=== PATIENT | female | born 1990 | race Two or more races ===

== ENCOUNTER → 2021-10-28 13:17 | Outpatient (BNVA) | payer MEDICAID, SELFPAY | PROVIDERS: Visit Provider Advanced Practice Midwife | DX: Z34.82 Encounter for supervision of other normal pregnancy, second trimester (principal); Z3A.22 22 weeks gestation of pregnancy; Z74.8 Other problems related to care provider dependency; Z59.1 Inadequate housing | CPT/HCPCS: 99202 ==

== ENCOUNTER 2021-10-31 11:51 | Outpatient (REF) | payer MEDICAID, SELFPAY ==
[2021-10-31 14:08] LABS: Hematocrit 32.2 % (37.0-47.0); Mean Corpuscular HGB Conc 34.2 g/dl (31.0-35.0); Mean Corpuscular Hemoglobin 23.9 pg (27.0-33.0); Platelet Count 273 X10*3/uL (160-400); Red Cell Distribution Width 13.7 % (11.0-16.0); White Blood Count 10.2 X10*3/uL (4.8-10.8)
[2021-10-31 14:31] LABS: Glucose 1 Hour PP 50gm Dose 87 mg/dL (60-140)
[2021-10-31 15:12] LABS: Syphilis Screen Nonreactive (Nonreactive)
[2021-11-01 01:37] LABS: Amphetamine Screen Urine Not Detected (Not Detect); Barbiturates, Urine Not Detected (Not Detect); Benzodiazepines Screen Urine Not Detected (Not Detect); Cannabinoid Screen Urine Not Detected (Not Detect); Cocaine Screen Urine Not Detected (Not Detect); Fentanyl, urine Not Detected (Not Detect); Opiate Screen Urine Not Detected (Not Detect); Phencyclidine Screen Urine Not Detected (Not Detect)
[2021-11-03 07:46] LABS: HBsAGNum1 0.21 S/CO (0.00-0.99); HIV AB/AG Nonreactive (Nonreactive); HIV Num 1 0.06 S/CO (0.00-0.99); Hepatitis B Surface Antigen Negative (Negative); ~HepC Num1 0.12 S/CO (0.00-0.79); ~Hepatitis C Antibody Nonreactive (Nonreactive)
[2021-11-05 09:03] LABS: Hemoglobin 10.8 g/dL (11.7-15.5); MCH 23.9 pg (27.0-33.0); RBC 4.52 Million/uL (3.80-5.10)
== END 2021-10-31 11:52 | disposition home or self-care (01) ==
LOC: HO.LAB 11:51
PROVIDERS: Visit Provider Advanced Practice Midwife
DX: Z34.93 Encounter for supervision of normal pregnancy, unspecified, third trimester (principal); Z3A.30 30 weeks gestation of pregnancy
CPT/HCPCS: 80307; 83020; 85014; 85018; 85027; 85041; 86762; 86780; 86787; 86803; 86850; 86900; 87086; 87340; 87389; 99212

== ENCOUNTER 2021-11-21 12:18 | Outpatient (REF) | payer MEDICAID, SELFPAY ==
[2021-11-22 13:38] LABS: CT PCR NOT DETECTED (Not Detect.); NG PCR NOT DETECTED (Not Detect.)
[2021-11-23 14:55] LABS: BV Int Neg Control Negative (Negative); BV Int Pos Control Positive (Positive)
[2021-11-27 22:41] LABS: HPV mRNA E6/E7 rflx Not Detected (Not Detected)
== END 2021-11-21 12:19 | disposition home or self-care (01) ==
LOC: HO.LNP 12:18
PROVIDERS: PCP Nurse Practitioner Primary Care; Visit Provider Advanced Practice Midwife
DX: Z34.93 Encounter for supervision of normal pregnancy, unspecified, third trimester (principal); Z3A.33 33 weeks gestation of pregnancy
CPT/HCPCS: 81003; 87480; 87491; 87510; 87591; 87624; 87660; 88142; 99212

== ENCOUNTER 2021-12-09 12:13 | Outpatient (REF) | payer MEDICAID, SELFPAY ==
[2021-12-10 03:29] LABS: CT PCR NOT DETECTED (Not Detect.); NG PCR NOT DETECTED (Not Detect.)
[2021-12-10 12:44] LABS: BV Int Neg Control Negative (Negative); BV Int Pos Control Positive (Positive)
== END 2021-12-09 12:14 | disposition home or self-care (01) ==
LOC: HO.LNP 12:13
PROVIDERS: Visit Provider Advanced Practice Midwife
DX: Z34.93 Encounter for supervision of normal pregnancy, unspecified, third trimester (principal)
CPT/HCPCS: 87081; 87480; 87491; 87510; 87591; 87660; 99212

== ENCOUNTER 2021-12-16 09:48 | Outpatient (REF) | payer MEDICAID, SELFPAY | END 2021-12-16 09:49 | disposition home or self-care (01) | LOC: HO.LNP 09:48 | PROVIDERS: Visit Provider Advanced Practice Midwife | DX: Z34.93 Encounter for supervision of normal pregnancy, unspecified, third trimester (principal) | CPT/HCPCS: 87081; 87147; 99212 ==

== ENCOUNTER → 2021-12-30 09:58 | Outpatient (BNVA) | payer MEDICAID, SELFPAY | PROVIDERS: PCP Nurse Practitioner Primary Care; Visit Provider Advanced Practice Midwife | DX: Z34.83 Encounter for supervision of other normal pregnancy, third trimester (principal); Z3A.39 39 weeks gestation of pregnancy | CPT/HCPCS: 99212 ==

== ENCOUNTER → 2022-02-11 14:07 | Outpatient (BNVA) | payer MEDICAID, SELFPAY | PROVIDERS: PCP Nurse Practitioner Primary Care; Visit Provider Advanced Practice Midwife | DX: Z39.1 Encounter for care and examination of lactating mother (principal); Z39.2 Encounter for routine postpartum follow-up; Z30.09 Encounter for other general counseling and advice on contraception; Z59.1 Inadequate housing | CPT/HCPCS: 99212 ==

== ENCOUNTER 2023-10-18 10:23 | Emergency (ER) | payer MEDICAID, SELFPAY ==
--- NOTE | ~2023-10-18 | XR_ITS ---
EXAMINATION: XR CHEST CLINICAL INFORMATION: Chest pain COMPARISON: None available. TECHNIQUE: 2 views of the chest were obtained. FINDINGS: No significant abnormality is noted involving the heart, lungs, mediastinum, bony thorax or soft tissues. XR/XR chest 2V IMPRESSION: Unremarkable examination.
--- NOTE | 2023-10-18 10:25 | ECG_ITS ---
Test Reason : CHEST PAIN Blood Pressure : / mmHG Vent. Rate : 079 BPM Atrial Rate : 079 BPM P-R Int : 164 ms QRS Dur : 076 ms QT Int : 366 ms P-R-T Axes : 032 043 047 degrees QTc Int : 419 ms Normal sinus rhythm Normal ECG No previous ECGs available Referred By: Generic ED Physician Electronically Signed By:YADI COX
[2023-10-18 10:33] VITALS: BP 125/73; PULSE 78; RESP 16; TEMP 37; O2SAT 98; BMI 37.2
[2023-10-18 10:47] LABS: MANUAL DIFF FLAG NO
[2023-10-18 10:50] LABS: Basophils Percent Auto 0.3 % (0-2); Eosinophils Absolute Auto 0.1 X10*3/uL (0.0-0.4); Hematocrit 35.1 % (37.0-47.0); Hemoglobin 11.9 g/dl (12.0-16.0); Imm Gran Abs Auto 0.03 X10*3/uL (0.00-0.03); Imm Gran Pct Auto 0.3 % (0.0-0.4); Lymphocytes Absolute Auto 2.9 X10*3/uL (1.2-4.9); Lymphocytes Percent Auto 33.6 % (20-40); Mean Corpuscular HGB Conc 33.9 g/dl (31.0-35.0); Mean Corpuscular Hemoglobin 22.5 pg (27.0-33.0); Mean Corpuscular Volume 66.4 fL (80.0-98.0); Mean Platelet Volume 9.1 fL (9.4-12.3); Monocytes Absolute Auto 0.5 X10*3/uL (0.1-1.2); Monocytes Percent Auto 5.3 % (2-11); Neutrophils Absolute Auto 5.1 x10*3/uL (2.0-8.3); Neutrophils Percent Auto 59.5 % (45-73); Platelet Count 339 X10*3/uL (160-400); Red Blood Count 5.29 X10*6/uL (4.20-5.50); Red Cell Distribution Width 15.2 % (11.0-16.0); White Blood Count 8.6 X10*3/uL (4.8-10.8)
[2023-10-18 11:09] LABS: Anion Gap 12 (12-20); Blood Urea Nitrogen 13 mg/dL (9-16); Calcium 9.5 mg/dL (8.4-10.2); Carbon Dioxide 26 mmol/L (22-29); Chloride 105 mmol/L (96-108); Estimated Glomerular Filt Rate > 60; Glucose Random 104 mg/dL (60-115); Potassium 3.5 mmol/L (3.3-5.1); Sodium 139 mmol/L (135-145)
[2023-10-18 11:18] LABS: Troponin-I High Sensitivity < 2.7 ng/L (<3.5-17.0)
== END 2023-10-18 14:01 | disposition left against medical advice (07) ==
PROVIDERS: Emergency Provider Emergency Medicine; PCP Nurse Practitioner Primary Care
DX: R07.9 Chest pain, unspecified (principal); Z53.21 Procedure and treatment not carried out due to patient leaving prior to being seen by health care provider
CPT/HCPCS: 36415; 71046; 80048; 84484; 85025; 93005; 99281; 99282; 99283

== ENCOUNTER 2023-10-18 15:11 | Emergency (ER) | payer MEDICAID, SELFPAY ==
[2023-10-18 15:32] VITALS: BP 149/84; PULSE 81; RESP 18; TEMP 37; O2SAT 100; BMI 33.1
--- NOTE | 2023-10-18 15:34 | ED_ITS ---
HPI - Chest Pain General Chief Complaint: Chest Pain Stated Complaint: Call To Return Time Seen by Provider: 10/18/23 15:40 Source: patient, old records reviewed and vp of product Mode of arrival: ambulatory Limitations: no limitations History of Present Illness ED Provider: Marizol Chapin PA-C HPI narrative: 33 yo Mexican Creole speaking female presents to the ER for evaluation of intermittent left sided chest pains for the last 3 months. She was seen here in the ER earlier today for similar complaints, ended up leaving and then coming back after she got home. She states she left a letter here from her primary care doctor. She is wanting a cardiology referral for her intermittent pains on the left side. She states she gets some intermittently, described as a cramping pain usually on the left side of her chest. She states an example is when she was reaching for something she gets a cramping pain in her chest that causes her to stay still for 30 seconds or more. It self resolved. No associated shortness of breath, nausea, diaphoresis or any other symptoms. She denies any leg swelling. She is not on an oral contraceptive. MD complaint: chest pain Onset (ago): month(s) Timing of current episode: episodic Prior episodes: Yes Pain location: left chest Pain radiation: none Severity: moderate Quality: sharp Relieving factors: nothing Exacerbating factors: nothing Treatment prior to arrival: none Risk Factors Coronary artery disease risk factors: none Thoracic aortic dissection risk factors: none Related Data On Oral Contraceptives: No Previous Rx's ?Medication ?Instructions ?Recorded vitamin with calcium 1 tab PO DAILY #90 tabs 10/28/21 no.72-iron 27 mg-folic acid 1 mg tablet ( Vitamins Plus Low Iron) ferrous sulfate 325 mg (65 mg 325 mg PO DAILY #60 tabs 11/19/21 iron) tablet (Iron (ferrous sulfate)) Allergies Allergy/AdvReac Type Severity Reaction Status Date / Time No Known Allergies Allergy Verified 10/18/23 15:41 Review of Systems Review of Systems: Yes all other systems are reviewed and are negative [facility] Family History Family History Maternal Uncle Sickle cell disease Social History Social History Household Members: Spouse and Children Housing: Homeless Housing Other:: lives in longterm Are you a primary inspector health care facilities to a significant other at home: No Do you presently have visiting nurse or other home services: No Alcohol intake: never Patient Tobacco Use Status: Never used Tobacco Agree to transfusion: Yes Advance Directives: No Advance Directives Information Provided: No service: No Current occupational status: unemployed Cognitive needs: No Hearing needs: No Vision needs: No Physical Exam Vital Signs: Vital Signs: Last Vital Signs Temp 98.6 F 10/18/23 15:32 Pulse 81 10/18/23 15:32 Resp 18 10/18/23 15:32 BP 149/84 H 10/18/23 15:32 Pulse Ox 100 10/18/23 15:32 O2 Del Method Room Air 10/18/23 15:32 BMI result Body Mass Index 33.1 Appearance: Alert. Oriented X3. No acute distress. Head: normocephalic, atraumatic. Eyes: Pupils equal, round and reactive to light. ENT: Pharynx normal. No tonsillar swelling or exudate. Neck: Normal inspection. Neck supple. CVS: Normal heart rate and rhythm. Pulses normal. nontender chest wall Respiratory: No respiratory distress. Breath sounds normal. Abdomen: Soft and nontender. +BS x4 Skin: Skin warm and dry. Normal skin color. Normal skin turgor. No rashes. Extremities: No lower extremity edema. No joint swelling. Neuro/psych: Oriented X 3. grossly normal, nonfocal Medical Decision Making Medical Decision Making MDM Narrative: 33-year-old female presents to the ER for evaluation of intermittent left-sided chest pains for the last 3 months. None at present. Patient describes the pain as a cramping type pain in the left chest that resolves on its own. No other associated symptoms. She is not on a oral contraceptive Her vital signs are stable. Perc negative. Workup earlier today shows a nonischemic, normal EKG. Chest x-ray is clear. Labs are unremarkable including a negative troponin. Doubt cardiac etiology. At this time she is stable for discharge home. She would like a referral to Cardiology. Name and number provided for nonurgent outpatient evaluation. She will follow up with her PCP. She is stable for discharge home Differential Diagnosis Differential Diagnoses: The differential diagnosis associated with the presentation includes Costochondritis, anxiety, muscular pain, low clinical suspicion for cardiac etiology such as ACS or PE Admission/Observation Consideration of admission/observation: Escalation of care including admission/observation considered Lab Data MDM Lab Attestation statement: I reviewed the patient's lab results. mild microcytic anemia Independent Interpretation I performed an independent interpretation of an: EKG and Plain X-Ray Interpretation: cxr clear without focal infiltrate or effusion ekg wiht normal sinus rhythm, HR 79 bpm, no ST segment elevations or depressions, normal QTc Radiology Impression Discussion of test interpretation with radiology: I have reviewed the radiologist's reading. Radiologist Impression: EXAMINATION: XR CHEST CLINICAL INFORMATION: Chest pain COMPARISON: None available. TECHNIQUE: 2 views of the chest were obtained. FINDINGS: No significant abnormality is noted involving the heart, lungs, mediastinum, bony thorax or soft tissues. XR/XR chest 2V IMPRESSION: Unremarkable examination. External Record Review External record reviewed: Prior outpatient labs Prescription Management I considered prescription management with: Pain Medication Social Determinants Patient?s care significantly limited by Social Determinants of Health including: Other Social Determinant of Health (language barrier) Critical Care Time Critical Care Time Critical Care Time: No Discharge Plan Discharge Clinical Impression: Chest pain, atypical Patient Disposition: Home, Self-Care Instructions: Noncardiac Chest Pain (ED) Additional Instructions: your lab workup, EKG, and chest x-ray were normal recommend following up with cardiology for further evaluation. name and number below follow up with your primary care doctor If you develop new or worsening symptoms call 911 or come back to the ER for further evaluation. Prescriptions: No Action ferrous sulfate [Iron (ferrous sulfate)] 325 mg (65 mg iron) Tablet 325 mg PO DAILY Qty: 60 0RF Vitamin Plus Low Iron 27 mg iron- 1 mg tablet 1 tab PO DAILY Qty: 90 4RF Referrals: [facility] [place] [facility] [Provider Group] Amparo Todd [facility] [Primary Care Provider] - Print Language: [place] Islander
[2023-10-18 16:02] VITALS: BP 149/84; PULSE 81; RESP 18; TEMP 37; O2SAT 100
== END 2023-10-18 16:03 | disposition home or self-care (01) ==
PROVIDERS: Emergency Provider Emergency Medicine; PCP Nurse Practitioner Primary Care
DX: R07.89 Other chest pain (principal)
CPT/HCPCS: 99282

== ENCOUNTER 2024-03-31 12:24 | Emergency (ER) | payer MEDICAID, SELFPAY ==
--- NOTE | ~2024-03-31 | US_ITS ---
EXAMINATION: US OBSTETRICAL ULTRASOUND CLINICAL INFORMATION: 6 weeks with vaginal bleed. COMPARISON: None available. LMP: 02/15/2024. Gestational age by maternal dates is 6 weeks and 3 days. Estimated date of delivery by maternal dates is 11/21/2024. TECHNIQUE: Seen transabdominal and transvaginal imaging of pelvis is performed. FINDINGS: The uterus is anteverted and measures 10.5 x 4.8 x 5.9 cm. Endometrial stripe measures 1.5 cm. There is hypoechoic area along the posterior endometrium question focal hemorrhage versus fluid collection. MATERNAL ADNEXA: The right maternal ovary measures 2.0 x 1.1 x 2.0 cm. No focal lesion is seen. The left maternal ovary measures 1.9 x 2.6 x 2.1 cm. There is anechoic cyst likely corpus luteal cyst measuring 1.2 x 1.5 x 1.6 cm. There is no adnexal mass or free fluid. US/US OB pelvic and transvaginal IMPRESSION: No intrauterine gestational sac or adnexal mass seen. Hypoechoic area in the posterior endometrium likely fluid or hemorrhage. Electronically signed by: Hung Morgan MD 03/31/2024 03:46 PM EST
[2024-03-31 12:51] VITALS: BP 125/70; PULSE 89; RESP 18; TEMP 36.8; O2SAT 100; BMI 37.3
--- NOTE | 2024-03-31 13:03 | ED.GENADULT ---
HPI - General Adult General Chief complaint: Vaginal Bleeding Stated complaint: Vaginal bleeding Time Seen by Provider: 03/31/24 16:30 History of Present Illness ED Provider: Jermaine ARMIJO narrative: The patient is a 33-year-old woman who was with her 4th . She has 3 children. Her last menstrual period was February 14. Five days ago on Wednesday she started to experience vaginal bleeding associated with some pelvic discomfort. She has had ongoing bleeding since then and finally came to the emergency room today. The patient was aware that she was . She has contacted the [facility] office and has a 1st appointment in April. The patient reports that she is going through about 5 pads per day. Related Data Previous Rx's ?Medication ?Instructions ?Recorded vitamin with calcium 1 tab PO DAILY #90 tabs 10/28/21 no.72-iron 27 mg-folic acid 1 mg tablet ( Vitamins Plus Low Iron) ferrous sulfate 325 mg (65 mg 325 mg PO DAILY #60 tabs 11/19/21 iron) tablet (Iron (ferrous sulfate)) Allergies Allergy/AdvReac Type Severity Reaction Status Date / Time No Known Allergies Allergy Verified 03/31/24 12:52 Review of Systems Review of Systems: Yes all other systems are reviewed and are negative [facility] Family History Family History Maternal Uncle Sickle cell disease Social History Social History Household Members: Spouse and Children Housing: Homeless Housing Other:: lives in penitentiary Are you a primary career education teacher to a significant other at home: No Do you presently have visiting nurse or other home services: No Alcohol intake: never Patient Tobacco Use Status: Never used Tobacco Agree to transfusion: Yes Advance Directives: No Advance Directives Information Provided: No Do you have a plan to hurt others: No Plan service: No Current occupational status: unemployed Cognitive needs: No Hearing needs: No Vision needs: No Physical Exam ED Vital Signs: Vital Signs - 24 hr 03/31/24 12:51 03/31/24 16:41 03/31/24 18:28 Temperature 98.3 F 97.8 F Pulse Rate 89 79 82 Respiratory Rate 18 14 16 Blood Pressure 125/70 119/78 122/89 Pulse Oximetry 100 100 100 Oxygen Delivery Method Room Air Room Air Room Air BMI result Body Mass Index 37.3 Const Other: The patient is awake, alert, pleasant, cooperative. She does not appear in any distress. HENMT Other: Face is symmetrical. Mucous membranes moist. Eyes General: appearance normal, both eyes and all related structures Neck Neck: Yes full ROM Resp Effort & Inspection: normal respiratory effort Auscultation: clear to auscultation bilaterally Cardio Rate: regular rate Rhythm: regular rhythm Heart sounds: S1 normal heart sound present and S2 normal heart sound present GI Other: Abdomen is soft and nontender Other: There was no significant amount of blood at the introitus. Introduction of the speculum revealed what seemed to be a small amount of possible tissue in the vaginal vault associated with a small amount of blood. I was able to remove the tissue with a colpette. There was no significant ongoing bleeding. Skin Other: Skin is dry and unremarkable Neuro Other: The patient is awake and alert with a normal mental status. Demeanor is nontoxic. Cranial nerves are grossly intact. She moves all extremities normally. Gait is normal. She seems entirely neurologically intact Extrem Other: No peripheral edema Course Course Course Narrative: Patient is 6 weeks , Creole speaking, complains of bleeding off and on for several days, had some mild pain on 1st day, no significant pain today, does not feel dizzy or weak Ultrasound, labs ordered This is rapid medical exam done in triage pending full evaluation for exam evaluation and dispo from ER provider Medical Decision Making Medical Decision Making MDM Narrative: The patient presents with symptoms suggestive of a possible spontaneous in a patient who was about 6 weeks by dates. The patient looks entirely well in his hemodynamically stable. Rh is positive. Beta HCG is 426. An ultrasound shows no intrauterine gestational sac or adnexal mass. There is a hypoechoic area in the posterior endometrium likely fluid or hemorrhage. Case was discussed with Dr. aDniels. He recommends the patient returned to the emergency room tomorrow on Wednesday for a repeat beta HCG and follow up in the office on Wednesday. Lab Data 03/31/24 13:41 03/31/24 13:41 Labs: Lab Results 03/31/24 03/31/24 Range/Units 13:40 13:41 WBC 9.4 (4.8-10.8) X10*3/uL RBC 5.03 (4.20-5.50) X10*6/uL Hgb 11.4 L (12.0-16.0) g/dl Hct 33.0 L (37.0-47.0) % MCV 65.6 L (80.0-98.0) fL MCH 22.7 L (27.0-33.0) pg MCHC 34.5 (31.0-35.0) g/dl RDW 14.6 (11.0-16.0) % Plt Count 312 (160-400) X10*3/uL MPV 9.0 L (9.4-12.3) fL Immature Gran % (Auto) 0.3 (0.0-0.4) % Neut % (Auto) 69.3 (45-73) % Lymph % (Auto) 23.2 (20-40) % [place] % (Auto) 6.3 (2-11) % Eos % (Auto) 0.6 (0-4) % Baso % (Auto) 0.3 (0-2) % Lymph # (Auto) 2.2 (1.2-4.9) X10*3/uL [place] # (Auto) 0.6 (0.1-1.2) X10*3/uL Eos # (Auto) 0.1 (0.0-0.4) X10*3/uL Baso # (Auto) 0.0 (0.0-0.2) X10*3/uL Abs Immat Gran (auto) 0.03 (0.00-0.03) X10*3/uL Absolute Neuts (auto) 6.5 (2.0-8.3) x10*3/uL Absolute Nucleated RBC 0.000 (0.0-0.012) X10*3/uL Nucleated RBC % (auto) 0.0 (0.0-0.2) /100WBC Sodium 139 (135-145) mmol/L Potassium 3.4 (3.3-5.1) mmol/L Chloride 107 (96-108) mmol/L Carbon Dioxide 25 (22-29) mmol/L Anion Gap 10 L (12-20) BUN 9 (9-16) mg/dL Creatinine 0.80 (0.5-1.4) mg/dL Estim Creat Clear Calc 119.3 Estimated GFR > 60 Random Glucose 83 (60-115) mg/dL Calcium 8.8 D (8.4-10.2) mg/dL Beta HCG, Quant 426 mIU/mL Urine Color Yellow Urine Appearance Clear Urine pH 5.5 (5.0-9.0) Ur Specific [place] 1.025 (1.005-1.025) Urine Protein Trace (Neg-Trace) mg/dL Urine Glucose (UA) Negative (Negative) mg/dL Urine Ketones Trace (Negative) mg/dL Urine Blood Large (3+) H (Negative) Urine Nitrite Negative (Negative) Ur Leukocyte Esterase Small (1+) H (Negative) Urine RBC >20 H (0-2) /HPF Urine WBC 11-20 H (0-5) /HPF Ur Squamous Epith Cells 0-2 (0-2) /HPF Urine Bacteria None Seen (None Seen) Hyaline Casts 0-2 (0-2) /LPF Urine Test POSITIVE H (NEGATIVE) Blood Type A Positive Discharge Plan Discharge Clinical Impression: Threatened miscarriage in early Patient Disposition: Home, Self-Care Instructions: Threatened Miscarriage (ED) Additional Instructions: It is possible you are experiencing a miscarriage today. I have contacted Dr. Daniels, the baker pastry. He has a requested that you return to the emergency room tomorrow for a repeat beta HCG blood test. He has also requested that you get seen at his office on Wednesday. Therefore please return when convenient tomorrow for a repeat blood test and plan on being seen at Dr. Daniels's office on Wednesday as well. If at any point you feel significantly worse, especially if heavy bleeding, worsening pain, or fever, please return directly to the emergency room. Prescriptions: No Action ferrous sulfate [Iron (ferrous sulfate)] 325 mg (65 mg iron) Tablet 325 mg PO DAILY Qty: 60 0RF Vitamin Plus Low Iron 27 mg iron- 1 mg tablet 1 tab PO DAILY Qty: 90 4RF Referrals: [facility] [place] [facility] [Provider Group] (Threatened spontaneous miscarriage) Interventions: ED Discharge Assessment Last Done: 03/31/24 18:28 Discharge Date/Time: 03/31/24 18:29 Print Language: Chinese
[2024-03-31 13:45] LABS: MANUAL DIFF FLAG NO
[2024-03-31 13:51] LABS: Appearance Urine Clear; Color Urine Yellow; Glucose Urine UA Negative (Negative); Leukocyte Esterase Urine Small (1+) (Negative); Nitrite Urine Negative (Negative); PH 5.5 (5.0-9.0); Specific Gravity - Urine 1.025 (1.005-1.025); UMIC TRIGGER UACC YES; Urine Blood Large (3+) (Negative); Urine Ketones Trace mg/dL (Negative); Urine Protein Trace mg/dL (Neg-Trace)
[2024-03-31 13:53] LABS: Basophils Percent Auto 0.3 % (0-2); Eosinophils Absolute Auto 0.1 X10*3/uL (0.0-0.4); Eosinophils Percent Auto 0.6 % (0-4); Hemoglobin 11.4 g/dl (12.0-16.0); Imm Gran Abs Auto 0.03 X10*3/uL (0.00-0.03); Imm Gran Pct Auto 0.3 % (0.0-0.4); Lymphocytes Absolute Auto 2.2 X10*3/uL (1.2-4.9); Lymphocytes Percent Auto 23.2 % (20-40); Mean Corpuscular HGB Conc 34.5 g/dl (31.0-35.0); Mean Corpuscular Hemoglobin 22.7 pg (27.0-33.0); Mean Corpuscular Volume 65.6 fL (80.0-98.0); Monocytes Absolute Auto 0.6 X10*3/uL (0.1-1.2); Monocytes Percent Auto 6.3 % (2-11); Neutrophils Absolute Auto 6.5 x10*3/uL (2.0-8.3); Neutrophils Percent Auto 69.3 % (45-73); Platelet Count 312 X10*3/uL (160-400); Red Blood Count 5.03 X10*6/uL (4.20-5.50); Red Cell Distribution Width 14.6 % (11.0-16.0); White Blood Count 9.4 X10*3/uL (4.8-10.8)
[2024-03-31 13:55] LABS: Bacteria Urine None Seen (None Seen); Hyaline Casts Urine 0-2 /LPF (0-2); RBC Urine >20 /HPF (0-2); Squamous Epithelial Cell Urine 0-2 /HPF (0-2); UACC Culture Trigger YES
[2024-03-31 13:57] LABS: UPreg QC Valid YES; Urine Pregnancy POSITIVE (NEGATIVE)
[2024-03-31 14:07] LABS: Anion Gap 10 (12-20); Blood Urea Nitrogen 9 mg/dL (9-16); Calcium 8.8 mg/dL (8.4-10.2); Carbon Dioxide 25 mmol/L (22-29); Chloride 107 mmol/L (96-108); Creatinine Clr Calc Pharmacy 119.3; Estimated Glomerular Filt Rate > 60; Glucose Random 83 mg/dL (60-115); Potassium 3.4 mmol/L (3.3-5.1); Sodium 139 mmol/L (135-145)
[2024-03-31 14:09] LABS: HCG Quantitative 426 mIU/mL
[2024-03-31 16:41] VITALS: BP 119/78; PULSE 79; RESP 14; O2SAT 100
--- NOTE | 2024-03-31 17:38 | PC.NURSE ---
provider at bedside for pelvic exam
--- NOTE | 2024-03-31 18:21 | P.CONOB_ITS ---
INVENTORY MANAGER - CN: HPI Data of Consult Consult date: 03/31/24 Primary Care Provider: Consuelo Mart Consult Narrative Narrative: I was consulted on Evaristo Augustine who is a 33 year old female presenting to the emergency room LMP on February 14 making her by dates at 6 weeks and 3 days of gestation. The patient started to experience vaginal bleeding associated with some pelvic discomfort 5 days ago. She has had ongoing bleeding since then and finally came to the emergency room today. No other associated symptoms. HCG 426, blood type A positive cc:: CC: OB [facility] Family History Family History Maternal Uncle Sickle cell disease Social History Social History Household Members: Spouse and Children Housing: Homeless Housing Other:: lives in fdc Are you a primary home care music therapist to a significant other at home: No Do you presently have visiting nurse or other home services: No Alcohol intake: never Patient Tobacco Use Status: Never used Tobacco Agree to transfusion: Yes Advance Directives: No Advance Directives Information Provided: No Do you have a plan to hurt others: No Plan service: No Current occupational status: unemployed Cognitive needs: No Hearing needs: No Vision needs: No Meds Allergies Allergy/AdvReac Type Severity Reaction Status Date / Time No Known Allergies Allergy Verified 03/31/24 12:52 INVENTORY MANAGER Physical Exam Vitals Vital signs: Temp Pulse Resp BP Pulse Ox O2 Del Method 98.3 F 79 14 119/78 100 Room Air 03/31/24 12:51 03/31/24 16:41 03/31/24 16:41 03/31/24 16:41 03/31/24 16:41 03/31/24 16:41 BMI result Body Mass Index 37.3 Additional Comments: Reported by Manolo Dean in the emergency room as the following week: Tissues removed from the cervix minimal blood per vagina no cervical motion tenderness uterine or adnexal tenderness abdomen with a normal INVENTORY MANAGER - Results Labs 03/31/24 13:41 03/31/24 13:41 Labs: Short CBC 03/31/24 Range/Units 13:41 WBC 9.4 (4.8-10.8) X10*3/uL Hgb 11.4 L (12.0-16.0) g/dl Hct 33.0 L (37.0-47.0) % Plt Count 312 (160-400) X10*3/uL BMP 03/31/24 13:41 Sodium 139 Potassium 3.4 Chloride 107 Carbon Dioxide 25 BUN 9 Creatinine 0.80 Calcium 8.8 D Urine 03/31/24 Range/Units 13:41 Urine Color Yellow Urine Appearance Clear Urine pH 5.5 (5.0-9.0) Ur Specific [place] 1.025 (1.005-1.025) Urine Protein Trace (Neg-Trace) mg/dL Urine Glucose (UA) Negative (Negative) mg/dL Urine Test POSITIVE H (NEGATIVE) Imaging US - abdomen: Radiologist's impression: ITS Impressions Pelvic/Transvag US 03/31/24 14:52 IMPRESSION: No intrauterine gestational sac or adnexal mass seen. Hypoechoic area in the posterior endometrium likely fluid or hemorrhage. Electronically signed by: Hung Morgan MD 03/31/2024 03:46 PM [facility] Assessment and Plan (1) Threatened miscarriage in early : Status: Acute Discussed with Manolo Park in the emergency room the following: Differential diagnosis include SAB, early IUP, incomplete , complete or ectopic Recommended to have the patient come back to emergency room for a repeat hCG quantitative and repeat evaluation Incomplete /ectopic instructions to be given to the patient, she is to come back to emergency room in case of pelvic pain, persistence or heavy vaginal bleeding. Otherwise follow-up in the office on Wednesday I spent a total of 20 minutes reviewing the chart, discussing the case with the emergency room provider and documenting in the medical record.
[2024-03-31 18:28] VITALS: BP 122/89; PULSE 82; RESP 16; TEMP 36.6; O2SAT 100
== END 2024-03-31 18:29 | disposition home or self-care (01) ==
PROVIDERS: Physician Assistant Medical; Emergency Provider Emergency Medicine
DX: O20.0 Threatened abortion (principal); Z3A.01 Less than 8 weeks gestation of pregnancy; R10.2 Pelvic and perineal pain; Z79.899 Other long term (current) drug therapy
CPT/HCPCS: 36415; 76801; 76817; 80048; 81001; 81025; 84702; 85025; 86900; 86901; 87086; 99284

== ENCOUNTER → 2024-03-31 16:26 | Outpatient (BNV) | payer MEDICAID, SELFPAY | PROVIDERS: Emergency Provider Emergency Medicine; Visit Provider Obstetrics & Gynecology | DX: O20.0 Threatened abortion (principal) | CPT/HCPCS: 99283 ==

== ENCOUNTER 2024-04-01 07:15 | Emergency (ER) | payer MEDICAID, SELFPAY ==
[2024-04-01 07:18] VITALS: BP 124/64; PULSE 82; RESP 18; TEMP 36.8; O2SAT 97; BMI 37.1
[2024-04-01 07:31] LABS: MANUAL DIFF FLAG NO
[2024-04-01 07:35] LABS: Basophils Percent Auto 0.3 % (0-2); Eosinophils Absolute Auto 0.1 X10*3/uL (0.0-0.4); Eosinophils Percent Auto 1.1 % (0-4); Hematocrit 33.4 % (37.0-47.0); Hemoglobin 11.4 g/dl (12.0-16.0); Imm Gran Abs Auto 0.02 X10*3/uL (0.00-0.03); Imm Gran Pct Auto 0.2 % (0.0-0.4); Lymphocytes Absolute Auto 2.5 X10*3/uL (1.2-4.9); Lymphocytes Percent Auto 28.8 % (20-40); Mean Corpuscular HGB Conc 34.1 g/dl (31.0-35.0); Mean Corpuscular Hemoglobin 22.4 pg (27.0-33.0); Mean Corpuscular Volume 65.5 fL (80.0-98.0); Mean Platelet Volume 8.9 fL (9.4-12.3); Monocytes Absolute Auto 0.4 X10*3/uL (0.1-1.2); Monocytes Percent Auto 4.5 % (2-11); Neutrophils Absolute Auto 5.7 x10*3/uL (2.0-8.3); Neutrophils Percent Auto 65.1 % (45-73); Platelet Count 314 X10*3/uL (160-400); Red Cell Distribution Width 14.6 % (11.0-16.0); White Blood Count 8.7 X10*3/uL (4.8-10.8)
--- NOTE | 2024-04-01 07:49 | ED.FEMALEGU ---
HPI - Female Genitourinary General Chief complaint: Vaginal Bleeding Stated complaint: repeat beta HCG blood test Time Seen by Provider: 04/01/24 07:25 Source: patient and horticultural nursery assistant Mode of arrival: ambulatory Limitations: no limitations History of Present Illness ED Provider: DR. Brown HPI Narrative: 33-year-old female in her early , LMP was 02/14. Was seen yesterday for vaginal spotting and bleed with no abdominal, mild pelvic discomfort, had her HCG 426, blood type was A positive, pelvic ultrasound yesterday showed no IUP, patient was advised to return for repeat hCG Related Data Previous Rx's ?Medication ?Instructions ?Recorded vitamin with calcium 1 tab PO DAILY #90 tabs 10/28/21 no.72-iron 27 mg-folic acid 1 mg tablet ( Vitamins Plus Low Iron) ferrous sulfate 325 mg (65 mg 325 mg PO DAILY #60 tabs 11/19/21 iron) tablet (Iron (ferrous sulfate)) Allergies Allergy/AdvReac Type Severity Reaction Status Date / Time No Known Allergies Allergy Verified 04/01/24 07:21 Review of Systems Review of Systems: All other systems are reviewed and are negative Constitutional: Reports as per HPI and Reports no additional constitutional complaints Eyes: Reports as per HPI and Reports no additional eye complaints Reports system reviewed and no additional complaints, except as documented Cardiovascular: Reports as per HPI and Reports no additional cardiovascular complaints Respiratory: Reports as per HPI and Reports no additional respiratory complaints Gastrointestinal: Reports as per HPI and Reports no additional gastrointestinal complaints Genitourinary: Reports no additional female genitourinary complaints Musculoskeletal: Reports no additional musculoskeletal complaints Skin/Breast: Reports system reviewed and no additional complaints, except as docu Psychiatric: Reports no additional psychiatric complaints Endocrine: Reports no additional endocrine complaints Hematologic/Lymphatic: Reports no additional hematologic/lymphatic complaints Allergic/Immunologic: Reports no additional allergic/immunologic complaints Reports system reviewed and no additional complaints, except as documented and Reports Abnormal speech present ON LICENSE OF [facility] Family History Family History Maternal Uncle Sickle cell disease Social History Social History Household Members: Spouse and Children Housing: Homeless Housing Other:: lives in [facility] Are you a primary personal care aide to a significant other at home: No Do you presently have visiting nurse or other home services: No Alcohol intake: never Patient Tobacco Use Status: Never used Tobacco Agree to transfusion: Yes Advance Directives: No Advance Directives Information Provided: No service: No Current occupational status: unemployed Cognitive needs: No Hearing needs: No Vision needs: No Physical Exam Vital Signs: Vital Signs: Last Vital Signs Temp 98.2 F 04/01/24 07:18 Pulse 82 04/01/24 07:18 Resp 18 04/01/24 07:18 BP 124/64 04/01/24 07:18 Pulse Ox 97 04/01/24 07:18 O2 Del Method Room Air 04/01/24 07:18 BMI result Body Mass Index 37.1 Vital signs have been reviewed and appear to be correct. Blood pressure elevated. Heart rate normal. Respiratory rate normal. Temperature normal. Oxygen saturation normal. Appearance: Alert. Oriented X3. No acute distress. Head: Normal external exam. Normocephalic. Atraumatic. No Keller signs noted. No raccoon eyes noted Eyes: PERRLA. EOMI. Conjunctiva and sclera normal. Eyelids normal. ENT: TM's Normal. Pharynx normal. Uvula midline. Moist mucous membranes. No trismus noted. No drooling noted. No muffled voice noted. Neck: Normal inspection. Neck supple. FROM. No adenopathy. Thyroid Normal. No meningeal signs. No neck mass noted. CVS: Normal heart rate and rhythm. Heart sound normal. No murmurs noted. Pulses normal throughout. Respiratory: No respiratory distress. Painless inspiration. Breath sounds normal. No wheezes/rales/rhonchi noted. Chest nontender. No accessory muscle usage noted or decreased air movement noted. Abdomen: Soft and nontender. Bowel sounds normal in all 4 quadrants. No distention noted. No organomegaly noted. No visible injury noted. Pelvic exam: No heavy bleeding few cc blood/dry blood in the vault, no speculum exam or bimanual exam. Back: No CVA tenderness. Full range of motion noted. Skin: Skin warm and dry. Normal skin color. Normal skin turgor. No rashes/lesions/lacerations noted. Extremities: No lower extremity edema. Extremities exhibit normal range of motion. Extremities nontender. Neuro: Oriented X 3. Cranial nerve exam: II-XII are grossly intact No motor deficit. No sensory deficit. Reflexes normal. Course Reevaluation(s) Reevaluation #1: LMP 12/ had ultrasound yesterday showed no IUP hCG was 426 yesterday today is 303, H and H are stable, patient hemodynamically stable, ABO Rh type is A positive. All the findings were discussed with Dr. Daniels and the plan is to discharge with close follow-up with Dr. Daniels in his office in 2 days. Time: 08:33 Medical Decision Making Differential Diagnosis Differential Diagnoses: The differential diagnosis associated with the presentation includes (Ectopic , threatened , early normal , anemia, electrolyte derangement.) Admission/Observation Consideration of admission/observation: Escalation of care including admission/observation considered Lab Data MDM Lab Attestation statement: I reviewed the patient's lab results. 04/01/24 07:27 Labs: Lab Results 04/01/24 Range/Units 07:27 WBC 8.7 (4.8-10.8) X10*3/uL RBC 5.10 (4.20-5.50) X10*6/uL Hgb 11.4 L (12.0-16.0) g/dl Hct 33.4 L (37.0-47.0) % MCV 65.5 L (80.0-98.0) fL MCH 22.4 L (27.0-33.0) pg MCHC 34.1 (31.0-35.0) g/dl RDW 14.6 (11.0-16.0) % Plt Count 314 (160-400) X10*3/uL MPV 8.9 L (9.4-12.3) fL Immature Gran % (Auto) 0.2 (0.0-0.4) % Neut % (Auto) 65.1 (45-73) % Lymph % (Auto) 28.8 (20-40) % [place] % (Auto) 4.5 (2-11) % Eos % (Auto) 1.1 (0-4) % Baso % (Auto) 0.3 (0-2) % Lymph # (Auto) 2.5 (1.2-4.9) X10*3/uL [place] # (Auto) 0.4 (0.1-1.2) X10*3/uL Eos # (Auto) 0.1 (0.0-0.4) X10*3/uL Baso # (Auto) 0.0 (0.0-0.2) X10*3/uL Abs Immat Gran (auto) 0.02 (0.00-0.03) X10*3/uL Absolute Neuts (auto) 5.7 (2.0-8.3) x10*3/uL Absolute Nucleated RBC 0.000 (0.0-0.012) X10*3/uL Nucleated RBC % (auto) 0.0 (0.0-0.2) /100WBC Beta HCG, Quant 303 mIU/mL Discharge Plan Discharge Clinical Impression: Vaginal bleeding Patient Disposition: Home, Self-Care Instructions: Threatened Miscarriage (ED) Additional Instructions: Return to the emergency department for severe pelvic pain, severe vaginal bleeding if he use more than 2 pads per hour or total of 5 pads a day. Prescriptions: No Action ferrous sulfate [Iron (ferrous sulfate)] 325 mg (65 mg iron) Tablet 325 mg PO DAILY Qty: 60 0RF Vitamin Plus Low Iron 27 mg iron- 1 mg tablet 1 tab PO DAILY Qty: 90 4RF Referrals: Joel Daniels MD [Physician] - Print Language: Slovak
--- OUTSIDE RECORDS SUMMARY | 2024-04-01 07:55 | XMS_ITS | Clinical Summary ---
Author Organization [employer] Address [address] [facility] [address] [place] [address] Care Team Providers Care Spinning Lathe Operator Name Role Phone Amparo Todd Primary Care Provider Allergies No known active allergies Medications No known medications Active Problems Problem Noted Date Diagnosed Date Cervical cancer screening 12/16/2023 Hemoglobin C (Hb-C) 12/16/2023 Encounters Date Type Department Care Team Description 03/17/2024 Telephone [facility] [address] [place] [address] Amparo Todd ANP Call Back Request 02/21/2024 Telephone [facility] [address] [place] [address] [facility] [place] [facility] from [facility] 3 Months Social History Tobacco Use Types Packs/Day Years Used Date Smoking Tobacco: Never Passive Smoke Exposure: Never Smokeless Tobacco: Never Tobacco Cessation:Counseling Given: Not Answered Depression Answer Date Recorded Patient Health Questionnaire-9 Score 5 12/16/2023 Patient Health Questionnaire-9 Score 5 12/16/2023 Last PHQ-9: Questionnaire Data Not on file 1 Housing Stability Answer Date Recorded What is your housing situation today? I am not s ure 12/16/[address] you li ve. Do you have problems with any of the following? I am not sure 12/16/2023 Food Insecurity Answer Date Recorded Within the past 12 months, y ou worried that your food would run out before you got money to buy more: Sometimes True 2023 Within the past 12 months,th e food you bought just didn't last and you didn't have enough money to get more: Sometimes True 12/16/2023 Transportation Answer Date Recorded In the past 12 months, has l ack of transportation kept you from medical appts, meetings, work or from getting things needed for daily living? No 12/16/2023 Utilities Answer Date Recorded In the past 12 months, has t he electric, gas, oil or water company threatened to shut off services in your home? No 12/16/2023 Depression Answer Date Recorded Patient Health Questionnaire-2 Score 2 12/16/2023 Internet Access Answer Date Recorded Internet Access Q1 No 12/16/2023 Internet Access Q2 Not on file 12/16/2023 Comments Unknown Sex and Gender Information Value Date Recorded Sex Assigned at Female 12/29/2021 10:40 AM EDT Legal Sex Female 10:40 AM EDT Gender Identity Female 12/29/2021 10:40 AM EDT Sexual Orientation Choose not to disclose 2021 10:40 AM EDT Last Filed Vital Signs Vital Sign Reading Time Taken Comments Blood Pressure 137/82 12/16/2023 2:39 PM EDT Pulse 89 12/16/2023 2:39 PM EDT Temperature 36.4 ??C (97.6 ??F) 12/16/2023 2:39 PM ED T Respiratory Rate 16 12/16/2023 2:39 PM EDT Oxygen Saturation 99% 12/16/2023 2:39 PM EDT Inhaled Oxygen Concentration - - Weight 100 kg (221 lb 3.2 oz) 12/16/2023 2:39 PM EDT Height 162.6 cm (5' 4 ) 12/16/2023 2:39 PM EDT Body Mass Index 37.97 12/16/2023 2:39 PM EDT Plan of Treatment Health Maintenance Due Date Last Done Comments Alcohol/Substance Use Screening 2003 Family Planning (PISQ) 2006 DTaP/Tdap/Td Vaccines (1 - Tdap) 2010 Hepatitis B Vaccines (1 of 3 - 19+ 3-dose series) 2010 COVID-19 Vaccine ( - 2023-2 5 season) 2023 Influenza Vaccine (#1) 2023 Tobacco Screening 10/11/2024 10/12/2023 Depression Screening 12/15/2024 12/16/2023, 12/16/2023 SDOH Screening 12/15/2024 12/16/2023 Cervical Cancer Screening 11/21/2026 HPV/Cotest 11/21/2026 11/21/2021, 11/21/2021 Pap Smear 11/21/2026 11/21/2021 Zoster Vaccines (1 of 2) 2041 RSV Patients and Patients Aged 60 years or older (1 - 1-dose 75+ series) 2066 HIV Screening Completed 10/31/2021 Hepatitis C Screening Completed 10/31/2021 HIB Vaccines Aged Out No longer eligi ble based on patient's age to complete this topic HPV Vaccines Aged Out No longer eligi ble based on patient's age to complete this topic Hepatitis A Vaccines Aged Out No long er eligible based on patient's age to complete this topic IPV Vaccines Aged Out No longer eligi ble based on patient's age to complete this topic Meningococcal Vaccine Aged Out No hannah linette eligible based on patient's age to complete this topic Pneumococcal Vaccine: Pediatrics (0 to 5 Years) and At-Risk Patients (6 to 49) Years) Aged Out No longer eligible b ased on patient's age to complete this topic RSV under 20 months Aged Out No longe r eligible based on patient's age to complete this topic Rotavirus Vaccines Aged Out No longer eligible based on patient's age to complete this topic Procedures Procedure Name Priority Date/Time Associated Diagnosis Comments AGNES HISTORICAL HPV E6/E7 RFLX SEA 16 18/45 Routine 11/21/2021 2:01 PM EDT HM PAP/HPV Routine 11/21/2021 AGNES HISTORICAL HEPATITIS C ANTIBODY Routine 10/31/2021 1:15 PM EDT from Last 3 Months or Most Recently Relevant to Health Maintenance Results * HPV E6/E7 RFLX SEA 16 18/45 (11/21/2021 2:01 PM EDT) HPV 16 RNA TNP CONVERTED [facility] HPV 18/45 RNA TNP CONVER MARCOS [facility] HPV E6 E7 ADD TNP CONVER MARCOS [facility] HPV mRNA E6/E7 rflx Not Detected Not Detected CONVERTED [facility] Comment: Methodology: Marionette Performer-Mediated Amplification This assay detects E6/E7 viral messenger RNA (mRNA) from 14 high-risk HPV types (16,18,31,33,35,39,45,51,52,56,58,59,66,68). Cervical sources are required for HPV testing. If a vaginal source from a patient who has had a total hysterectomy with removal of cervix was submitted, please contact the testing laboratory for alternative testing options. For additional information, please refer to http://education.Zank/faq/DHO311z2 (This link if provided for information/ educational purposes only.) THIS TEST WAS PERFORMED AT: [facility] [address] [place] [address] [address] [place], [place] ??[id number] SHEILA KEEN MD 11/21/2021 2:01 PM EDT [facility] HISTORICAL/NON ORDERABLE LABS Fi nal Result CONVERTED LEGACY LABS * Hm Pap Smear (11/21/2021) Historical Provider HEALTH MAINTENANCE Final Result * Hepatitis C Antibody (10/31/2021 1:15 PM EDT) Hepatitis C Antibody Nonreactive Nonreactive [facility] Comment: Antibodies to HCV not detected; does not exclude early acute HCV infection. HIV AB/AG Nonreactive Nonreactive [facility] Comment: HIV-1 p24 Ag and/or HIV-1/HIV-2 Ab not detected. ?? A test result that is nonreactive does not exclude the possibility of exposure to or infection with HIV-1 and/or HIV-2. Nonreactive results in this assay for individuals with prior exposure to HIV-1 and/or HIV-2 may be due to antigen and antibody levels that are below the limit of detection of this assay. ?? The Flynn Paver Operator HIV Ag/Ab Combo assay result and supplemental assay results should be interpreted in conjunction with the patient's clinical presentation, history and other laboratory results. ??If the results are inconsistent with clinical evidence, additional testing is suggested to confirm the result. Hepatitis B Surface Antigen Negative Negative [facility] 10/31/2021 1:15 PM EDT us Rubi Selby HISTORICAL/NON ORDERABLE LABS Fi nal Result [facility] [address] from Last 3 Months or Most Recently Relevant to Health Maintenance [address] [place] [address] Care Teams Spinning Lathe Operator Relationship Specialty Start Date End Date Amparo Todd ANP [address] [place] [id number] PCP - General Family Medicine 11/14/21
--- OUTSIDE RECORDS SUMMARY | 2024-04-01 07:55 | XMS_ITS | Encounter Summary ---
Author Organization [email or web address] Address [address] [facility] [address] [place] [address] Care Team Providers Care Refractive Surgeon Name Role Phone Amparo Todd Primary Care Provider [phone] Reason for Visit * Reason Onset Date Comments Call Back Request 03/17/2024 Encounter Details Date Type Department Care Team ([facility] st Contact Info) Description 03/17/2024 Telephone [facility] [address] [place] [address] Amparo Todd ANP [address] [place] [address] Call Back Request Social History Tobacco Use Types Packs/Day Years Used Date Smoking Tobacco: Never Passive Smoke Exposure: Never Smokeless Tobacco: Never Depression Answer Date Recorded Patient Health Questionnaire-9 [...] not to disclose 2021 10:40 AM EDT documented as of this encounter Miscellaneous Notes * Telephone Encounter - Renetta Devi RN - 03/22/2024 1:54 PM EST Telephone call placed to pt again regarding below messages. Number still not in service. Will send letter to address on file. * Telephone Encounter - Gisell Hernandez RN - 03/21/2024 1:16 PM EST Telephone call x3 to pt regarding message below. No answer, phone number not in service. Called other number on file, reached person who said they were the , no one listed on HIPAA form, pt not available, advised to have pt call [facility], no other info disclosed. Pt to call [facility] PRN. * Telephone Encounter - Renetta Devi RN - 03/18/2024 11:19 AM EST Telephone call placed to pt. Number not in service and no other number on file. Will retask to callagain one more time Wednesday to see if phone is back in service. * Telephone Encounter - Gisell Hernandez RN - 03/17/2024 4:17 PM EST Returned call to pt regarding message below, however phone number is not in service. The [employer] customer you are calling has a phone number that has changed or is no longer in service. Will task to try to call again. * Telephone Encounter - Radha Lao - 03/17/2024 9:56 AM EST Tc from pt stating she's and are requesting a call back from nurses. No pain, no symptoms,just for orientation. [phone] (Welsh) documented in this encounter Plan of Treatment Not on file documented as of this encounter Visit Diagnoses Not on filedocumented in this encounter Additional Health Concerns Assessment Noted Time PHQ-9 Depression Total Score: 5 12/16/19 24 3:34 PM EDT documented as of this encounter Care Teams Refractive Surgeon Relationship Specialty Start Date End Date Amparo Todd ANP [address] [place] [phone] PCP - General Family Medicine 11/14/21 documented as of this encounter
[2024-04-01 07:56] LABS: HCG Quantitative 303 mIU/mL
[2024-04-01 09:09] VITALS: BP 119/76; PULSE 76; RESP 14; TEMP 36.6; O2SAT 100
[2024-04-01 09:13] VITALS: BP 119/76; PULSE 76; RESP 14; TEMP 36.6; O2SAT 100
--- NOTE | 2024-04-01 09:46 | PM.GYNCN ---
COMMERCIAL ART INSTRUCTOR - CN: HPI Data of Consult Consult date: 04/01/24 Primary Care Provider: [employer] LCSW Consult Narrative Narrative: I was consulted on Evaristo Augustine who is a 33 year old female presenting to the emergency room today for follow-up from yesterday's visit. The patient's LMP on February 14 making her by dates at 6 weeks and 4 days of gestation. The patient presented yesterday the ER with vaginal bleeding associated with some pelvic discomfort 5 days prior to presentation. She has had ongoing bleeding since then and finally came to the emergency room yesterday. In the emergency room yesterday: HCG 426, blood type A positive, in addition on pelvic exam the ER physician products of conception were pulled up with a ring forcepsout of the cervical os, bleeding slowed down markedly the patient was discharged home to come back to be re-evaluate day with repeat hCG. Since then the patient is doing well with minimal vaginal bleeding no pelvic cramping no fever or chills. Today's H&H= 11.4/33.4 similar to yesterday, hCG dropped to 303 cc:: CC: [facility] Family History Family History Maternal Uncle Sickle cell disease Social History Social History Household Members: Spouse and Children Housing: Homeless Housing Other:: lives in long term Are you a primary acute care surgeon to a significant other at home: No Do you presently have visiting nurse or other home services: No Alcohol intake: never Patient Tobacco Use Status: Never used Tobacco Agree to transfusion: Yes Advance Directives: No Advance Directives Information Provided: No service: No Current occupational status: unemployed Cognitive needs: No Hearing needs: No Vision needs: No Meds Allergies Allergy/AdvReac Type Severity Reaction Status Date / Time No Known Allergies Allergy Verified 04/01/24 07:21 COMMERCIAL ART INSTRUCTOR Physical Exam Vitals Vital signs: Temp Pulse Resp BP Pulse Ox O2 Del Method 97.8 F 76 14 119/76 100 Room Air 04/01/24 09:13 04/01/24 09:13 04/01/24 09:13 04/01/24 09:13 04/01/24 09:13 04/01/24 09:13 BMI result Body Mass Index 37.1 COMMERCIAL ART INSTRUCTOR - Results Labs 04/01/24 07:27 Labs: Short CBC 04/01/24 Range/Units 07:27 WBC 8.7 (4.8-10.8) X10*3/uL Hgb 11.4 L (12.0-16.0) g/dl Hct 33.4 L (37.0-47.0) % Plt Count 314 (160-400) X10*3/uL Assessment and Plan (1) Complete : Status: Acute Recommended to Dr. Brown the following: Follow-up in the office in 48 hours will repeat hCG. Incomplete /ectopic warnings to be given to the patient, she is to come back to the emergency room in case of pelvic pain and or vaginal bleeding otherwise follow-up in the office in 4 8 hours for re-evaluation repeat hCG. I spent a total of 20 minutes reviewing the chart, communicating to the emergency room provider and documenting the medical record
== END 2024-04-01 09:14 | disposition home or self-care (01) ==
PROVIDERS: Emergency Provider Emergency Medicine; PCP Social Worker
DX: O20.9 Hemorrhage in early pregnancy, unspecified (principal); Z3A.01 Less than 8 weeks gestation of pregnancy
CPT/HCPCS: 36415; 84702; 85025; 99283

== ENCOUNTER 2024-04-07 09:55 | Outpatient (REF) | payer MEDICAID, SELFPAY ==
[2024-04-07 10:36] LABS: HCG Quantitative 45 mIU/mL
--- OUTSIDE RECORDS SUMMARY | 2024-04-07 10:42 | XMS_ITS | Encounter Summary ---
Author Organization [employer] Address 75 [facility] 7t [place] [address] Care Team Providers Care Cigarette Machines Mechanic Name Role Phone Amparo Todd Primary Care Provider [phone] Encounter Details Date Type Department Care Team (Late st Contact Info) Description 11/19/2022 Orders Only [facility] MEDICINE [address] [place] [address] Provider, MD Al Social History Tobacco Use Types Packs/Day Years Used Date Smoking Tobacco: Never Assessed Comments Unknown Sex and Gender Information Value Date Recorded Sex Assigned at Female 12/29/2021 10:40 AM EDT Legal Sex Female 10:40 AM EDT Gender Identity Female 12/29/2021 10:40 AM EDT Sexual Orientation Choose not to disclose 2021 10:40 AM EDT documented as of this encounter Plan of Treatment Not on file documented as of this encounter Procedures Procedure Name Priority Date/Time Associated Diagnosis Comments HIGH SENSITIVITY TROPONIN I Routine 10/18/2023 10:43 AM EDT CBC WITH AUTO DIFFERENTIAL Routine 10/18/2023 10:43 AM EDT BASIC METABOLIC PANEL Routine 10/18/2023 10:43 AM EDT HM PAP/HPV Routine 11/21/2021 documented in this encounter Results * High Sensitivity Troponin I (10/18/2023 10:43 AM EDT) TROPONIN I HIGH SENSITIVITY <2.7 <3.5 - 17.0 ng/L [facility] Comment:The Flynn high sens itivity Troponin-I results should beused in conjunction with other diagnostic information suchas ECG, clinical observations and information, and patientsymptoms to aid in the diagnosis of CO. 10/18/2023 10:4 3 AM EDT 10/18/2023 10:46 AM EDT us Generic External Data Provider LAB BLOOD ORDERAB LES Final Result [facility] [address] [place] [address] [phone] * Basic Metabolic Panel (10/18/2023 10:43 AM EDT) Sodium 139 135 - 145 mmol/L [facility] Potassium 3.5 3.3 - 5.1 mmol/L [facility] Chloride 105 96 - 108 mmol/L [facility] Carbon Dioxide 26 22 - 29 mmol/L [facility] Anion Gap 12 12 - 20 [facility] Urea Nitrogen (BUN) 13 9 - 16 mg/dL [facility] Creatinine, Serum 0.91 0.5 - 1.4 mg/dL [facility] Creatinine Clr Calc Pharmacy 101.0 [facility] Comment:Provided height and weight: 162.56 cm,98.2 kg.eGFR (calculated from the MDRD study equation) and eCrCl(calculated from the Cockcroft-Gault equation) are based ondifferent parameters and may not yield comparable results.If eCrCl result is absurd, please check patient'sheight/weight. Estimated Glomerular Filt Rate >60 [facility] Comment:NOTE: For -Am erican individuals, multiply the result by 1.210.Chronic Kidney Disease: Estimated GFR < 60 mL/min/1.67v2Xxarxz Kidney Disease: Estimated GFR < 15 mL/min/1.73m2 Glucose 104 60 - 115 mg/dL [facility] Calcium 9.5 8.4 - 10.2 mg/dL [facility] 10/18/2023 10:4 3 AM EDT 10/18/2023 10:46 AM EDT us Generic External Data Provider LAB BLOOD ORDERAB LES Final Result [facility] [address] [place], [place] [phone] * (ABNORMAL) CBC auto differential (10/18/2023 10:43 AM EDT) White Blood Count 8.6 4.8 - 10.8 X10*3/uL [facility] Red Blood Count 5.29 4.20 - 5.50 X10*6/uL [facility] Hemoglobin 11.9(L) 12.0 - 16.0 g/dl [facility] Hematocrit 35.1(L) 37.0 - 47.0 % [facility] Mean Corpuscular Volume 66.4(L) 80.0 - 98.0 fL [facility] Mean Corpuscular Hemoglobin 22.5(L) 27.0 - 33.0 pg [facility] Mean Corpuscular HGB Conc 33.9 31.0 - 35.0 g/dl [facility] Red Cell Distribution Width 15.2 11.0 - 16.0 % [facility] Platelet Count 339 160 - 400 X10*3/uL [facility] Mean Platelet Volume 9.1(L) 9.4 - 12.3 fL [facility] Neutrophils Percent Auto 59.5 45 - 73 % [facility] Imm Gran Pct Auto 0.3 0.0 - 0.4 % [facility] Lymphocytes Percent Auto 33.6 20 - 40 % [facility] Monocytes Percent Auto 5.3 2 - 11 % [facility] Eosinophils Percent Auto 1.0 0 - 4 % [facility] Basophils Percent Auto 0.3 0 - 2 % [facility] NRBC Pct Auto 0.0 0.0 - 0.2 /100WBC [facility] Neutrophils Absolute Auto 5.1 2.0 - 8.3 x10*3/uL [facility] Imm Gran Abs Auto 0.03 0.00 - 0.03 X10*3/uL [facility] Lymphocytes Absolute Auto 2.9 1.2 - 4.9 X10*3/uL [facility] Monocytes Absolute Auto 0.5 0.1 - 1.2 X10*3/uL [facility] Eosinophils Absolute Auto 0.1 0.0 - 0.4 X10*3/uL [facility] Basophils Absolute Auto 0.0 0.0 - 0.2 X10*3/uL [facility] NRBC Abs Auto 0.000 0.0 - 0.012 X10*3/uL [facility] 10/18/2023 10:4 3 AM EDT 10/18/2023 10:46 AM EDT us Generic External Data Provider LAB BLOOD ORDERAB LES Final Result [facility] [address] [place] [address] [phone] * Hm Pap Smear (11/21/2021) us Historical Provider HEALTH MAINTENANCE Final Result documented in this encounter Visit Diagnoses Not on filedocumented in this encounter Care Teams Cigarette Machines Mechanic Relationship Specialty Start Date End Date Amparo Todd ANP [address] [place] [phone] PCP - General Family Medicine 11/14/21 documented as of this encounter
--- OUTSIDE RECORDS SUMMARY | 2024-04-07 10:42 | XMS_ITS | Encounter Summary ---
Author Organization [employer] Address [address] [facility] 7t [place] [address] Care Team Providers Care Automotive Glass Specialist Name Role Phone Amparo Todd Primary Care Provider [phone] Reason for Visit * Reason Onset Date Comments Call Back Request 03/17/2024 Encounter Details Date Type Department Care Team ([facility] st Contact Info) Description 03/17/2024 Telephone [facility] MEDICINE [address] [place] [address] Amparo Todd ANP [address] [place] [address] Call Back Request Social History Tobacco Use [...] not available, advised to have pt call [facility], no other info disclosed. Pt to call [facility] PRN. * Telephone Encounter - Renetta [...] phone number is not in service. The [employer] customer you are calling has a phone number that has changed or is no longer in service. Will task to try to call again. * Telephone Encounter - Radha Lao - 03/17/2024 9:56 AM EST Tc from pt stating she's and are requesting a call back from nurses. No pain, no symptoms,just for orientation. [phone] (French) documented in this encounter Plan of Treatment Not on file documented as of this encounter Visit Diagnoses Not on filedocumented in this encounter Additional Health Concerns Assessment Noted Time PHQ-9 Depression Total Score: 5 12/16/19 24 3:34 PM EDT documented as of this encounter Care Teams Automotive Glass Specialist Relationship Specialty Start Date End Date Amparo Todd ANP [address] [place] [phone] PCP - General Family Medicine 11/14/21 documented as of this encounter
--- OUTSIDE RECORDS SUMMARY | 2024-04-07 10:42 | XMS_ITS | Clinical Summary ---
Author Organization [employer] Address 75 [facility] 7t [place] [address] Care Team Providers Care Sap Business Intelligence Consultant Name Role Phone Amparo Todd Primary Care Provider [phone] Allergies No known active allergies Medications No known medications Active Problems Problem Noted Date Diagnosed Date Cervical cancer screening 12/16/2023 Hemoglobin C (Hb-C) 12/16/2023 Encounters Date Type Department Care Team Description 03/17/2024 Telephone [facility] MEDICINE [address] [place] [address] Amparo Todd ANP Call Back Request 02/21/2024 Telephone [facility] MED[facility]INE [address] [place] [address] [facility] [place] March recall from Last 3 Months Social [...] PM EDT) HPV 16 RNA TNP CONVERTED EBIQUOUS HPV 18/45 RNA TNP CONVER MARCOS EBIQUOUS HPV E6 E7 ADD TNP CONVER MARCOS EBIQUOUS HPV mRNA E6/E7 rflx Not Detected Not Detected CONVERTED [facility]OUS Comment: Methodology: Seismograph Shooter-Mediated Amplification This assay detects E6/E7 viral messenger RNA (mRNA) from 14 high-risk HPV types (16,18,31,33,35,39,45,51,52,56,58,59,66,68). Cervical sources are required for HPV testing. If a vaginal source from a patient who has had a total hysterectomy with removal of cervix was submitted, please contact the testing laboratory for alternative testing options. For additional information, please refer to http://education.TheJobPost/faq/BCF146o5 (This link if provided for information/ educational purposes only.) THIS TEST WAS PERFORMED AT: [employer] [address] [place] [address] [address] [place], [place] ??[phone] SHEILA KEEN MD 11/21/2021 2:01 PM EDT [facility] HISTORICAL/NON ORDERABLE LABS Fi nal Result CONVERTED LEGACY LABS * Hm Pap Smear (11/21/2021) Historical Provider HEALTH MAINTENANCE Final Result * Hepatitis C Antibody (10/31/2021 1:15 PM EDT) Hepatitis C Antibody Nonreactive Nonreactive [facility] Comment: Antibodies to HCV not [...] detection of this assay. ?? The Flynn Design Quality Engineer HIV Ag/Ab Combo assay result and supplemental assay results should be interpreted in conjunction with the patient's clinical presentation, history and other laboratory results. ??If the results are inconsistent with clinical evidence, additional testing is suggested to confirm the result. Hepatitis B Surface Antigen Negative Negative [facility] 10/31/2021 1:15 PM EDT us Rubi Selby HISTORICAL/NON ORDERABLE LABS Fi nal Result [facility] [address] from Last 3 Months or Most Recently Relevant to Health Maintenance Insurance [address] [place] [address] C3 Care Teams Sap Business Intelligence Consultant Relationship Specialty Start Date End Date Amparo Todd ANP [address] [place] [phone] PCP - General Family Medicine 11/14/21
== END 2024-04-07 09:56 | disposition home or self-care (01) ==
LOC: HO.LAB 09:55
PROVIDERS: PCP Nurse Practitioner Primary Care; Visit Provider Obstetrics & Gynecology
DX: O03.9 Complete or unspecified spontaneous abortion without complication (principal); Z30.09 Encounter for other general counseling and advice on contraception
CPT/HCPCS: 36415; 84702; 99212

== ENCOUNTER → 2024-04-07 12:08 | Outpatient (AMB) | END | disposition home or self-care (01) | CPT/HCPCS: 99213 ==

== ENCOUNTER 2024-04-19 09:37 | Outpatient (REF) | payer MEDICAID, SELFPAY ==
--- OUTSIDE RECORDS SUMMARY | 2024-04-19 09:57 | XMS_ITS | Clinical Summary ---
Author Organization [employer] Address 75 [facility] 7t [place] [address] Care Team Providers Care Communication Studies Professor Name Role Phone Amparo Todd Primary Care Provider [phone] Allergies No known active allergies Medications No known medications Active Problems Problem Noted Date Diagnosed Date Cervical cancer screening 12/16/2023 Hemoglobin C (Hb-C) 12/16/2023 Encounters Date Type Department Care Team Description 03/17/2024 Telephone [facility] MEDICINE [address] [place] [address] Amparo Todd ANP Call Back Request 02/21/2024 Telephone [facility] MEDICINE [address] [place] [address] [facility] [place] March recall from Last 3 Months Social [...] Procedure Name Priority Date/Time Associated Diagnosis Comments HCG, TOTAL, QN Routine 04/07/2024 10:06 AM EST [facility]ZZ HISTORICAL HPV E6/E7 RFLX SEA 16 18/45 Routine 11/21/2021 2:01 PM EDT HM PAP/HPV Routine 11/21/2021 ZZZ HISTORICAL HEPATITIS C ANTIBODY Routine 10/31/2021 1:15 PM EDT from Last 3 Months or Most Recently Relevant to Health Maintenance Results * hCG, Total, Quantitative (04/07/2024 10:06 AM EST) HCG Quantitative 45 mIU/mL [facility] Comment:Weeks post LMP Appro ximate hCG(Last Menstrual Period) Range (mIU/ml)3 - 4 weeks 9 - 1304 - 5 weeks 75 - 2,6005 - 6 weeks 850 - 20,8006 - 7 weeks 4000 - 100,2007 - 12 weeks 11,500 - 289,53858 - 16 weeks 18,300 - 137,37233 - 29 weeks (2nd trimester) 1,400 - 53,92576 - 41 weeks (3rd trimester) 940 - 60,000The Flynn B- hCG assay is used for the early detection ofpregnancy; it cannot be used to diagnose any conditionunrelated to . If a B-hCG level is not supportedby the clinical evidence, results should be confirmed by analternative method (qualitative urine hCG, for example). 04/07/2024 10:0 6 AM EST 04/07/2024 10:06 AM EST us Generic External Data Provider LAB BLOOD ORDERAB LES Final Result [facility] [address] [place] [phone] * HPV E6/E7 RFLX SEA 16 18/45 (11/21/2021 2:01 PM EDT) HPV 16 RNA TNP CONVERTED [employer] HPV 18/45 RNA TNP CONVER MARCOS [employer] HPV E6 E7 ADD TNP CONVER [employer] HPV mRNA E6/E7 rflx Not Detected Not Detected CONVERTED [employer] Comment: Methodology: Elementary Educator-Mediated Amplification This assay detects E6/E7 viral messenger RNA (mRNA) from 14 high-risk HPV types (16,18,31,33,35,39,45,51,52,56,58,59,66,68). Cervical sources are required for HPV testing. If a vaginal source from a patient who has had a total hysterectomy with removal of cervix was submitted, please contact the testing laboratory for alternative testing options. For additional information, please refer to http://education.Palmap/faq/YFQ264m7 (This link if provided for information/ educational purposes only.) THIS TEST WAS PERFORMED AT: [employer] [address] [place] [address],[address] [place], [place] ??[phone] SHEILA KEEN MD 11/21/2021 2:01 PM EDT Rubi [place] HISTORICAL/NON ORDERABLE LABS Fi nal Result Performing Organization Address City/[facility] Co de Phone Number CONVERTED LEGACY LABS * Hm Pap Smear (11/21/2021) Historical Provider MD HEALTH MAINTENANCE Final Result * Hepatitis C Antibody (10/31/2021 1:15 PM EDT) Hepatitis C Antibody Nonreactive Nonreactive [facility] Comment: Antibodies to HCV not detected; does not exclude early acute HCV infection. HIV AB/AG Nonreactive Nonreactive [facility] Comment: HIV-1 p24 Ag and/or [...] detection of this assay. ?? The Flynn Patient Financial Services Specialist HIV Ag/Ab Combo assay result and supplemental assay results should be interpreted in conjunction with the patient's clinical presentation, history and other laboratory results. ??If the results are inconsistent with clinical evidence, additional testing is suggested to confirm the result. Hepatitis B Surface Antigen Negative Negative [facility] 10/31/2021 1:15 PM EDT Rubi [place]ien HISTORICAL/NON ORDERABLE LABS Fi nal Result Performing Organization Address City/[facility] Co de Phone Number [facility] [address] from Last 3 Months or Most Recently Relevant to Health Maintenance Insurance [facility] [employer] Care Teams Communication Studies Professor Relationship Specialty Start Date End Date Amparo Todd ANP [address] [place] [phone] PCP - General Family Medicine 11/14/21
--- OUTSIDE RECORDS SUMMARY | 2024-04-19 09:57 | XMS_ITS | Encounter Summary ---
Author Organization [employer] Address [address] [facility] 7t [place] [address] Care Team Providers Care Recovery Engineer Name Role Phone Amparo Todd Primary Care Provider [phone] Reason for Visit * Reason Onset Date Comments Call Back Request 03/17/2024 Encounter Details Date Type Department Care Team ([facility] st Contact Info) Description 03/17/2024 Telephone [facility] MEDICINE [address] [place] [address] Amparo Todd ANP [address] [place] [address] Call Back Request Social History Tobacco Use [...] not available, advised to have pt call [facility], no other info disclosed. Pt to call [facility] PRN. * Telephone Encounter - Renetta [...] phone number is not in service. The [employer] customer you are calling has a phone number that has changed or is no longer in service. Will task to try to call again. * Telephone Encounter - Radha Lao - 03/17/2024 9:56 AM EST Tc from pt stating she's and are requesting a call back from nurses. No pain, no symptoms,just for orientation. [phone] (Albanian) documented in this encounter Plan of Treatment Not on file documented as of this encounter Visit Diagnoses Not on filedocumented in this encounter Additional Health Concerns Assessment Noted Time PHQ-9 Depression Total Score: 5 12/16/19 24 3:34 PM EDT documented as of this encounter Care Teams Recovery Engineer Relationship Specialty Start Date End Date Amparo Todd ANP [address] [place] [phone] PCP - General Family Medicine 11/14/21 documented as of this encounter
--- OUTSIDE RECORDS SUMMARY | 2024-04-19 09:57 | XMS_ITS | Encounter Summary ---
Author Organization [employer] Address 75 [facility] 7t [place] [address] Care Team Providers Care Lidding Machine Operator Name Role Phone Amparo Todd Primary Care Provider [phone] Encounter Details Date Type Department Care Team (Late st Contact Info) Description 11/19/2022 Orders Only [facility] [address] [place] [address] Provider, MD Al Social History Tobacco Use [...] HIGH SENSITIVITY <2.7 <3.5 - 17.0 ng/L [facility] Comment:The Flynn high sens itivity Troponin-I results should beused in conjunction with other diagnostic information suchas ECG, clinical observations and information, and patientsymptoms to aid in the diagnosis of [place]. 10/18/2023 10:4 3 AM EDT 10/18/2023 10:46 AM EDT us Generic External Data Provider LAB BLOOD ORDERAB LES Final Result [facility] [address] [place] [address] [phone] * Basic Metabolic Panel (10/18/2023 10:43 AM EDT) Sodium 139 135 - 145 mmol/L [facility] Potassium 3.5 3.3 - 5.1 mmol/L [facility] Chloride 105 96 - 108 mmol/L [facility] Carbon Dioxide 26 22 - 29 mmol/L [facility] Anion Gap 12 12 - 20 [facility] Urea Nitrogen (BUN) 13 9 - 16 mg/dL [facility] Creatinine, Serum 0.91 0.5 - 1.4 mg/dL [facility] Creatinine Clr Calc Pharmacy 101.0 [facility] Comment:Provided height and weight: 162.56 cm,98.2 kg.eGFR (calculated from the MDRD study equation) and eCrCl(calculated from the Cockcroft-Gault equation) are based ondifferent parameters and may not yield comparable results.If eCrCl result is absurd, please check patient'sheight/weight. Estimated Glomerular Filt Rate >60 [facility] Comment:NOTE: For -Am erican individuals, multiply the result by 1.210.Chronic Kidney Disease: Estimated GFR < 60 mL/min/1.78h5Oyzoqh Kidney Disease: Estimated GFR < 15 mL/min/1.73m2 Glucose 104 60 - 115 mg/dL [facility] Calcium 9.5 8.4 - 10.2 mg/dL [facility] 10/18/2023 10:4 3 AM EDT 10/18/2023 10:46 AM EDT us Generic External Data Provider LAB BLOOD ORDERAB LES Final Result [facility] [address] [place], [place] [phone] * (ABNORMAL) CBC auto differential (10/18/2023 10:43 AM EDT) White Blood Count 8.6 4.8 - 10.8 X10*3/uL [facility] Red Blood Count 5.29 4.20 - 5.50 X10*6/uL [facility] Hemoglobin 11.9(L) 12.0 - 16.0 g/dl [facility] Hematocrit 35.1(L) 37.0 - 47.0 % [facility] Mean Corpuscular Volume 66.4(L) 80.0 - 98.0 fL [facility] Mean Corpuscular Hemoglobin 22.5(L) 27.0 - 33.0 pg [facility] Mean Corpuscular HGB Conc 33.9 31.0 - 35.0 g/dl [facility] Red Cell Distribution Width 15.2 11.0 - 16.0 % [facility] Platelet Count 339 160 - 400 X10*3/uL [facility] Mean Platelet Volume 9.1(L) 9.4 - 12.3 fL [facility] Neutrophils Percent Auto 59.5 45 - 73 % [facility] Imm Gran Pct Auto 0.3 0.0 - 0.4 % [facility] Lymphocytes Percent Auto 33.6 20 - 40 % [facility] Monocytes Percent Auto 5.3 2 - 11 % [facility] Eosinophils Percent Auto 1.0 0 - 4 % [facility] Basophils Percent Auto 0.3 0 - 2 % [facility] NRBC Pct Auto 0.0 0.0 - 0.2 /100WBC [facility] Neutrophils Absolute Auto 5.1 2.0 - 8.3 x10*3/uL [facility] Imm Gran Abs Auto 0.03 0.00 - 0.03 X10*3/uL [facility] Lymphocytes Absolute Auto 2.9 1.2 - 4.9 X10*3/uL [facility] Monocytes Absolute Auto 0.5 0.1 - 1.2 X10*3/uL [facility] Eosinophils Absolute Auto 0.1 0.0 - 0.4 X10*3/uL [facility] Basophils Absolute Auto 0.0 0.0 - 0.2 X10*3/uL [facility] NRBC Abs Auto 0.000 0.0 - 0.012 X10*3/uL [facility] 10/18/2023 10:4 3 AM EDT 10/18/2023 10:46 AM EDT us Generic External Data Provider LAB BLOOD ORDERAB LES Final Result [facility] [address] [place] [address] [phone] * Hm Pap Smear (11/21/2021) us Historical Provider HEALTH MAINTENANCE Final Result documented in this encounter Visit Diagnoses Not on filedocumented in this encounter Care Teams Lidding Machine Operator Relationship Specialty Start Date End Date Amparo Todd ANP [address] [place] [phone] PCP - General Family Medicine 11/14/21 documented as of this encounter
[2024-04-19 10:37] LABS: HCG Quantitative 4 mIU/mL
== END 2024-04-19 09:38 | disposition home or self-care (01) ==
LOC: HO.LAB 09:37
PROVIDERS: PCP Nurse Practitioner Primary Care; Visit Provider Obstetrics & Gynecology
DX: Z30.430 Encounter for insertion of intrauterine contraceptive device (principal)
CPT/HCPCS: 36415; 58300; 81025; 84702; J7298

== ENCOUNTER 2024-04-19 09:52 | Outpatient (AMB) | payer MEDICAID, SELFPAY ==
[2024-04-19 09:55] VITALS: BMI 37.1
--- NOTE | 2024-04-19 09:55 | A.OFFVIS_ITS ---
Vital Signs 04/19/24 09:55 Height 5 ft 5 in Weight 223 lb BMI 37.1 Intake Visit Reasons: mirena insertion Mechanical Engineering Director Required: Yes Mechanical Engineering Director Language: Elevator Erector Helper Services: Mechanical Engineering Director Present (in person) Mechanical Engineering Director Name: Jeanine DUKES Information Interpreted: non-clinical & clinical Appliance Tester: Appliance Tester Present (Jeanine DUKES) Accompanied by: Self / Same As Patient Allergies No Known Allergies Allergy (Verified 04/19/24 10:01) HPI Comments Details: Presenting for Mirena IUD insertion. Repeat hCG done today was 4 down from 45. The patient is doing well with no complaints no vaginal bleeding and or cramping PFSH Family History Maternal Uncle Sickle cell disease Social History Household Members: Spouse and Children Both parents involved: Yes Caregiver staying overnight: No Housing: Homeless Housing Other:: lives in jail Are you a primary career development associate to a significant other at home: No Do you presently have visiting nurse or other home services: No 75 years or older and lives alone: No Alcohol intake: never Patient Tobacco Use Status: Never used Tobacco Agree to transfusion: Yes service: No Current occupational status: unemployed Cognitive needs: No Hearing needs: No Vision needs: No Female Reproductive History Menstrual Age of Menarche: 12 Review of Systems Const All systems reviewed & are unremarkable except as noted in HPI and below Reports as per HPI and Reports no additional complaints GI Reports no additional complaints Reports no additional complaints Physical Exam Vital Signs: BMI result Body Mass Index 37.1 Office Procedures IUD Insert/Removal Details Details: The patient is presenting for Mirena IUD insertion Urine test was done in the office and was negative; All the contraindications were excluded. The following possible complications were discussed with the patient: Intrauterine , Ectopic , Sepsis, Pelvic Infection, Irregular Bleeding and Amenorrhea, Perforation, Expulsion, Ovarian Cysts, Breast Cancer, The following adverse effects were discussed with the patient: alteration of menstrual bleeding pattern, including: unscheduled uterine bleeding decreased uterine bleeding increased scheduled uterine bleeding female genital tract bleeding ,amenorrhea , genital discharge , vulvovaginitis , breast pain , benign ovarian cyst and associated complications , dysmenorrhea , Gastrointestinal disorders abdominal/pelvic pain, headache/migraine , back pain , acne , depression Alternative options were discussed with the patient including but not limited: control pills, patch, NuvaRing, Depo-medroxyprogesterone acetate, Nexplanon, copper IUD, sterilization, vasectomy, others The procedure was explained in detail to patient , at the end patient signed the informed consent obtained. A no touch technique was used throughout the procedure. A speculum was placed into vagina and cervix was cleaned with betadine). A tenaculum was placed. A plastic sound was advanced through the external and internal os until it reached the fundus of the uterus, the depth was 8 cm. The sound was then withdrawn. The IUD was loaded in a sterile manner and advanced into position. The string was visualized and cut to 3 cm. Tenaculum site hemostatic. All instruments removed from vagina. Patient tolerated the procedure well. NO complications were noted. Patient was instructed to call for fever over 100.4, significant pain unrelieved by Motrin, IUD expulsion, heavy bleeding, or abnormal discharge. In addition, the following clinical considerations were discussed with the patient to call for removal: A stroke or heart attack ,Very severe or migraine headaches ,Unexplained fever ,Yellowing of the skin or whites of the eyes, as these may be signs of serious liver problems , or suspected , Pelvic pain or pain during sex ,HIV positive seroconversion in herself or her partner , Possible exposure to sexually transmitted infections Unusual vaginal discharge or genital sores , severe vaginal bleeding or bleeding that lasts a long time, or if she misses a menstrual period, Inability to feel Mirena's threads Counseled the patient that the IUD does not protect against STI's, recommended use of condoms for the first 7 days post insertion and explained to the patient that condoms are recommended for patients at risk for sexually transmitted infections. Informed the patient that Mirena IUD is FDA approved for 8 years for contraception for 5 years for the treatment of heavy menses Instructed the patient to schedule a Follow up appointment in 4 to 6 weeks following insertion. This note was generated with a voice recognition program. Some errors may have been overlooked during the review of this note. Sometimes these errors may affect the content or meaning of a given sentence. [id number] Insertion Procedure code (CPT) selection complete Office Meds Mirena 21 mcg/24 hr (up to 8 years) 52 mg intrauterine device Performing Provider: Joel Daniels MD Performing Location: [facility] [place] [facility] Documented (not given) by: Joel Daniels MD on 04/19/24 10:47 Dose Route Admin Location Dispensed Lot Number Expiration Date NDC [employer] 1 device intrauterine ea Results AMB Test Urine AMB Test Urine Negative Last Edit by Jeanine Clement CMA on 10:07 Results Reviewed Results Reviewed: Laboratory Last Values [facility] Negative 04/19/24 10:05 Assessment & Plan Assessment & Plan (1) Encounter for IUD insertion: Code(s): Z30.430 - Encounter for insertion of intrauterine contraceptive device Category: Medical Plan: GC/CT taken, urine test done in the office was negative. Mirena IUD inserted, see procedure note Orders: Orders AMB HCG Urine Test Today Z32.02 - Encounter for test, result negative AMB IUD Insertion/Removal - Practice Supplied Today Z30.430 - Encounter for insertion of intrauterine contraceptive device Medications: New Mirena (levonorgestrel) 1 device intrauterine ONCE 1 ea 0RF IUD insertion NS Z30.430 - Encounter for insertion of intrauterine contraceptive device Coding Level of Care Code Procedure Only Diagnoses Encounter for IUD insertion Z30.430 CPT Codes Details - CPT: 93040-HNN Insertion ([id number])
== END 2024-04-19 10:53 | disposition home or self-care (01) ==
LOC: HO.HWS 09:52
PROVIDERS: PCP Nurse Practitioner Primary Care; Visit Provider Obstetrics & Gynecology
DX: Z30.430 Encounter for insertion of intrauterine contraceptive device (principal); Z32.02 Encounter for pregnancy test, result negative
CPT/HCPCS: 58300

== ENCOUNTER 2024-04-19 10:52 | Outpatient (REF) | payer MEDICAID, SELFPAY ==
--- OUTSIDE RECORDS SUMMARY | 2024-04-19 11:37 | XMS_ITS | Clinical Summary ---
Author Organization [employer] Address 75 [facility] 7t [place] [address] Care Team Providers Care Data Collection Interviewer Name Role Phone Amparo Todd Primary Care Provider [phone] Allergies No known active allergies Medications No known medications Active Problems Problem Noted Date Diagnosed Date Cervical cancer screening 12/16/2023 Hemoglobin C (Hb-C) 12/16/2023 Encounters Date Type Department Care Team Description 03/17/2024 Telephone [facility] [address] [place] [address] Amparo Todd ANP Call Back Request 02/21/2024 Telephone [facility] [address] [place] [address] [facility] [place] March recall from Last 3 Months Social [...] Associated Diagnosis Comments HCG, TOTAL, QN Routine 04/19/2024 9:46 AM EST HCG, TOTAL, QN Routine 04/07/2024 10:06 AM EST [facility] HISTORICAL HPV E6/E7 RFLX SEA 16 18/45 Routine 11/21/2021 2:01 PM EDT HM PAP/HPV Routine 11/21/2021 [facility] HISTORICAL HEPATITIS C ANTIBODY Routine 10/31/2021 1:15 PM EDT from Last 3 Months or Most Recently Relevant to Health Maintenance Results * hCG, Total, Quantitative (04/19/2024 9:46 AM EST) Only the most recent of2 resultswithin the time period is included. HCG Quantitative 4 mIU/mL [facility] Comment:Weeks post LMP Appro ximate hCG(Last Menstrual Period) Range (mIU/ml)3 - 4 weeks 9 - 1304 - 5 weeks 75 - 2,6005 - 6 weeks 850 - 20,8006 - 7 weeks 4000 - 100,2007 - 12 weeks 11,500 - 289,29658 - 16 weeks 18,300 - 137,45705 - 29 weeks (2nd trimester) 1,400 - 53,11126 - 41 weeks (3rd trimester) 940 - 60,000The Flynn B- hCG assay is used for the early detection ofpregnancy; it cannot be used to diagnose any conditionunrelated to . If a B-hCG level is not supportedby the clinical evidence, results should be confirmed by analternative method (qualitative urine hCG, for example). 04/19/2024 9:46 AM EST 04/19/2024 9:46 AM EST us Generic External Data Provider LAB BLOOD ORDERAB LES Final Result [facility] [address] [place] [phone] * HPV E6/E7 RFLX SEA 16 18/45 (11/21/2021 2:01 PM EDT) HPV 16 RNA TNP CONVERTED [facility] HPV 18/45 RNA TNP CONVER [facility] ReCellular HPV E6 E7 ADD TNP CONVER [employer] HPV mRNA E6/E7 rflx Not Detected Not Detected [facility] Comment: Methodology: Operations Trainer-Mediated Amplification This assay detects E6/E7 viral messenger RNA (mRNA) from 14 high-risk HPV types (16,18,31,33,35,39,45,51,52,56,58,59,66,68). Cervical sources are required for HPV testing. If a vaginal source from a patient who has had a total hysterectomy with removal of cervix was submitted, please contact the testing laboratory for alternative testing options. For additional information, please refer to http://education.Genbook/faq/ZJA562i9 (This link if provided for information/ educational purposes only.) THIS TEST WAS PERFORMED AT: [facility] [address] [place] [address] [address] [place], [place] ??[phone] SHEILA KEEN MD 11/21/2021 2:01 PM EDT [facility] [place] HISTORICAL/NON ORDERABLE LABS Fi nal Result Performing Organization Address City/[facility]/ZIP Co de Phone Number [facility] * Hm Pap Smear (11/21/2021) Historical Provider HEALTH MAINTENANCE Final Result * Hepatitis C Antibody (10/31/2021 1:15 PM EDT) Hepatitis C Antibody Nonreactive Nonreactive [facility] Comment: Antibodies to HCV not detected; does not exclude early acute HCV infection. HIV AB/AG Nonreactive Nonreactive [facility] Comment: HIV-1 p24 Ag and/or [...] detection of this assay. ?? The Flynn Sheep Clipper HIV Ag/Ab Combo assay result and supplemental assay results should be interpreted in conjunction with the patient's clinical presentation, history and other laboratory results. ??If the results are inconsistent with clinical evidence, additional testing is suggested to confirm the result. Hepatitis B Surface Antigen Negative Negative [facility] 10/31/2021 1:15 PM EDT [facility] [place] HISTORICAL/NON ORDERABLE LABS Fi nal Result Performing Organization Address City/[facility]/ZIP Co de Phone Number [facility] [address] from Last 3 Months or Most Recently Relevant to Health Maintenance Insurance [facility] C3 Care Teams Data Collection Interviewer Relationship Specialty Start Date End Date Amparo Todd ANP [address] [place] [phone] PCP - General Family Medicine 11/14/21
--- OUTSIDE RECORDS SUMMARY | 2024-04-19 11:37 | XMS_ITS | Encounter Summary ---
Author Organization [employer] Address 75 [facility] 7t [place] [address] Care Team Providers Care Youth Development Professional Name Role Phone Amparo Todd Primary Care Provider [phone] Encounter Details Date Type Department Care Team (Late st Contact Info) Description 11/19/2022 Orders Only [facility] [address] [place] [address] Provider, MD Al Social History Tobacco Use [...] HIGH SENSITIVITY <2.7 <3.5 - 17.0 ng/L [facility] Comment:The Flynn high sens itivity Troponin-I results should beused in conjunction with other diagnostic information suchas ECG, clinical observations and information, and patientsymptoms to aid in the diagnosis of [place]. 10/18/2023 10:4 3 AM EDT 10/18/2023 10:46 AM EDT us Generic External Data Provider LAB BLOOD ORDERAB LES Final Result [facility] [address] [place] [address] [phone] * Basic Metabolic Panel (10/18/2023 10:43 AM EDT) Sodium 139 135 - 145 mmol/L [facility] Potassium 3.5 3.3 - 5.1 mmol/L [facility] Chloride 105 96 - 108 mmol/L [facility] Carbon Dioxide 26 22 - 29 mmol/L [facility] Anion Gap 12 12 - 20 [facility] Urea Nitrogen (BUN) 13 9 - 16 mg/dL [facility] Creatinine, Serum 0.91 0.5 - 1.4 mg/dL [facility] Creatinine Clr Calc Pharmacy 101.0 [facility] Comment:Provided height and weight: 162.56 cm,98.2 kg.eGFR (calculated from the MDRD study equation) and eCrCl(calculated from the Cockcroft-Gault equation) are based ondifferent parameters and may not yield comparable results.If eCrCl result is absurd, please check patient'sheight/weight. Estimated Glomerular Filt Rate >60 [facility] Comment:NOTE: For -Am erican individuals, multiply the result by 1.210.Chronic Kidney Disease: Estimated GFR < 60 mL/min/1.15f8Mkcsoy Kidney Disease: Estimated GFR < 15 mL/min/1.73m2 Glucose 104 60 - 115 mg/dL [facility] Calcium 9.5 8.4 - 10.2 mg/dL [facility] 10/18/2023 10:4 3 AM EDT 10/18/2023 10:46 AM EDT us Generic External Data Provider LAB BLOOD ORDERAB LES Final Result [facility] [address] [place], [place] [phone] * (ABNORMAL) CBC auto differential (10/18/2023 10:43 AM EDT) White Blood Count 8.6 4.8 - 10.8 X10*3/uL [facility] Red Blood Count 5.29 4.20 - 5.50 X10*6/uL [facility] Hemoglobin 11.9(L) 12.0 - 16.0 g/dl [facility] Hematocrit 35.1(L) 37.0 - 47.0 % [facility] Mean Corpuscular Volume 66.4(L) 80.0 - 98.0 fL [facility] Mean Corpuscular Hemoglobin 22.5(L) 27.0 - 33.0 pg [facility] Mean Corpuscular HGB Conc 33.9 31.0 - 35.0 g/dl [facility] Red Cell Distribution Width 15.2 11.0 - 16.0 % [facility] Platelet Count 339 160 - 400 X10*3/uL [facility] Mean Platelet Volume 9.1(L) 9.4 - 12.3 fL [facility] Neutrophils Percent Auto 59.5 45 - 73 % [facility] Imm Gran Pct Auto 0.3 0.0 - 0.4 % [facility] Lymphocytes Percent Auto 33.6 20 - 40 % [facility] Monocytes Percent Auto 5.3 2 - 11 % [facility] Eosinophils Percent Auto 1.0 0 - 4 % [facility] Basophils Percent Auto 0.3 0 - 2 % [facility] NRBC Pct Auto 0.0 0.0 - 0.2 /100WBC [facility] Neutrophils Absolute Auto 5.1 2.0 - 8.3 x10*3/uL [facility] Imm Gran Abs Auto 0.03 0.00 - 0.03 X10*3/uL [facility] Lymphocytes Absolute Auto 2.9 1.2 - 4.9 X10*3/uL [facility] Monocytes Absolute Auto 0.5 0.1 - 1.2 X10*3/uL [facility] Eosinophils Absolute Auto 0.1 0.0 - 0.4 X10*3/uL [facility] Basophils Absolute Auto 0.0 0.0 - 0.2 X10*3/uL [facility] NRBC Abs Auto 0.000 0.0 - 0.012 X10*3/uL [facility] 10/18/2023 10:4 3 AM EDT 10/18/2023 10:46 AM EDT us Generic External Data Provider LAB BLOOD ORDERAB LES Final Result [facility] [address] [place] [address] [phone] * Hm Pap Smear (11/21/2021) us Historical Provider HEALTH MAINTENANCE Final Result documented in this encounter Visit Diagnoses Not on filedocumented in this encounter Care Teams Youth Development Professional Relationship Specialty Start Date End Date Amparo Todd ANP [address] [place] [phone] PCP - General Family Medicine 11/14/21 documented as of this encounter
--- OUTSIDE RECORDS SUMMARY | 2024-04-19 11:37 | XMS_ITS | Encounter Summary ---
Author Organization [employer] Address 75 [facility] 7t [place] [address] Care Team Providers Care Missionary Coordinator Name Role Phone Amparo Todd Primary Care Provider [phone] Reason for Visit * Reason Onset Date Comments Call Back Request 03/17/2024 Encounter Details Date Type Department Care Team ([facility] st Contact Info) Description 03/17/[address] [facility]INE [address] [place] [address] Amparo Todd ANP [address] [place] [address] Call Back Request Social History Tobacco Use [...] advised to have pt call [facility], no other info disclosed. Pt to call [facility] PRN. * Telephone Encounter - Renetta [...] phone number is not in service. The [employer] customer you are calling has a phone number that has changed or is no longer in service. Will task to try to call again. * Telephone Encounter - Radha Lao - 03/17/2024 9:56 AM EST Tc from pt stating she's and are requesting a call back from nurses. No pain, no symptoms,just for orientation. [phone] (Ecuadorean) documented in this encounter Plan of Treatment Not on file documented as of this encounter Visit Diagnoses Not on filedocumented in this encounter Additional Health Concerns Assessment Noted Time PHQ-9 Depression Total Score: 5 12/16/19 24 3:34 PM EDT documented as of this encounter Care Teams Missionary Coordinator Relationship Specialty Start Date End Date Amparo Tdod ANP [address] [place] [phone] PCP - General Family Medicine 11/14/21 documented as of this encounter
[2024-04-19 17:48] LABS: CT PCR NOT DETECTED (Not Detect.); NG PCR NOT DETECTED (Not Detect.)
== END 2024-04-19 10:53 | disposition home or self-care (01) ==
LOC: HO.LNP 10:52
PROVIDERS: Visit Provider Obstetrics & Gynecology
DX: Z30.430 Encounter for insertion of intrauterine contraceptive device (principal)
CPT/HCPCS: 87491; 87591

== ENCOUNTER 2024-05-31 08:19 | Outpatient (AMB) | payer MEDICAID, SELFPAY ==
--- NOTE | 2024-05-31 08:21 | A.OFFVIS_ITS ---
Vital Signs 05/31/24 08:28 Height 5 ft 5 in Weight 223 lb BMI 37.1 BP 124/72 Intake Visit Reasons: iud check Fuel Assembler Required: Yes Fuel Assembler Language: Senior Instrumentation Engineer Services: Fuel Assembler Present (in person) Fuel Assembler Name: ERNST Martinez Information Interpreted: non-clinical & clinical Environmental Issues Instructor: Environmental Issues Instructor Present (ERNST Martinez) Accompanied by: Self / Same As Patient Allergies No Known Allergies Allergy (Verified 05/31/24 08:28) HPI Comments Details: The patient is presenting for IUD check after 1 st period following IUD insertion. The patient has no complaints periods are normal, not painful, and flow is normal. [facility] Family History Maternal Uncle Sickle cell disease Social History Household Members: Spouse and Children Both parents involved: Yes Caregiver staying overnight: No Housing: Homeless Housing Other:: lives in prison Are you a primary geriatric care manager to a significant other at home: No Do you presently have visiting nurse or other home services: No 75 years or older and lives alone: No Alcohol intake: never Patient Tobacco Use Status: Never used Tobacco Agree to transfusion: Yes service: No Current occupational status: unemployed Cognitive needs: No Hearing needs: No Vision needs: No Female Reproductive History Menstrual Age of Menarche: 12 Review of Systems Const All systems reviewed & are unremarkable except as noted in HPI and below Physical Exam Vital Signs: Last Vital Signs BP 124/72 05/31/24 08:28 BMI result Body Mass Index 37.1 General: Yes no CVA tenderness External Female Exam: normal external appearance and normal appearance of the urethra Speculum Exam - Vagina: normal appearance of the vagina, normal palpation, no lesions and no masses Speculum Exam - Cervix: normal appearance of the cervix, normal palpation, no lesions, no masses and nontender Bimanual exam- vagina & uterus: normal bimanual exam, normal palpation, uterine size normal, normal palpation, uterine shape normal, No Cervical tenderness present, non-tender and other (IUD thread in place) Bimanual Exam- Adnexa, other: normal adnexae Back/Spine/Pelvis Back: no CVA tenderness Assessment & Plan Assessment & Plan (1) IUD check up: Code(s): Z30.431 - Encounter for routine checking of intrauterine contraceptive device Category: Medical Plan: UPT done in the office was negative. Discussed with the patient the finding on physical exam, IUD string in place, the patient was reassured. Instructions given to patient to call in case of temperature above 100.4, severe cramping/pelvic pain, abnormal discharge or abnormal uterine bleeding or if she misses her menstrual cycle. Otherwise follow-up at her annual exam appointment. All questions answered, the patient verbalized understanding. Coding Level of Care Code Est Pt Level 3 (24315) Diagnoses IUD check up Z30.431
[2024-05-31 08:28] VITALS: BP 124/72; BMI 37.1
--- OUTSIDE RECORDS SUMMARY | 2024-05-31 08:29 | XMS_ITS | Clinical Summary ---
Author Organization [employer] [facility] Address 75 [facility] 7t [place] [address] Care Team Providers Care Senior Hardware Engineer Name Role Phone Amparo Todd Primary Care Provider [phone] Allergies No known active allergies Medications No known medications Active Problems Problem Noted Date Diagnosed Date Cervical cancer screening 12/16/2023 Hemoglobin C (Hb-C) 12/16/2023 Encounters Date Type Department Care Team Description 05/12/2024 Population Health Risk Score [facility] () Department [address] [phone] Provider, Population Health Generic 03/17/[address] [facility]INE [address] [place] [address] Amparo Todd ANP Call Back Request from Last 3 Months Social History Tobacco [...] period is included. HCG Quantitative 4 mIU/mL [facility] Comment:Weeks post LMP Appro ximate hCG(Last Menstrual Period) Range (mIU/ml)3 - 4 weeks 9 - 1304 - 5 weeks 75 - 2,6005 - 6 weeks 850 - 20,8006 - 7 weeks 4000 - 100,2007 - 12 weeks 11,500 - 289,77104 - 16 weeks 18,300 - 137,39214 - 29 weeks (2nd trimester) 1,400 - 53,84577 - 41 weeks (3rd trimester) 940 - 60,000The Flynn B- hCG assay is used for the early detection ofpregnancy; it cannot be used to diagnose any conditionunrelated to . If a B-hCG level is not supportedby the clinical evidence, results should be confirmed by analternative method (qualitative urine hCG, for example). 04/19/2024 9:46 AM EST 04/19/2024 9:46 AM EST Generic External Data Provider LAB BLOOD ORDERAB LES Final Result [facility] [address] [place] [phone] * HPV E6/E7 RFLX SEA 16 18/45 (11/21/2021 2:01 PM EDT) HPV 16 RNA TNP CONVERTED [facility] HPV 18/45 RNA TNP CONVER [facility] Clinical Data HPV E6 E7 ADD TNP [facility] Clinical Data HPV mRNA E6/E7 rflx Not Detected Not Detected CONVERTED Clinical Data Comment: Methodology: Wax Engraver-Mediated Amplification This assay detects E6/E7 viral messenger RNA (mRNA) from 14 high-risk HPV types (16,18,31,33,35,39,45,51,52,56,58,59,66,68). Cervical sources are required for HPV testing. If a vaginal source from a patient who has had a total hysterectomy with removal of cervix was submitted, please contact the testing laboratory for alternative testing options. For additional information, please refer to http://education.[employer] Systems/faq/UTK715s4 (This link if provided for information/ educational purposes only.) THIS TEST WAS PERFORMED AT: [facility] [address] [facility] [address] [place], [place] ??[phone] SHEILA KEEN MD 11/21/2021 2:01 PM EDT [facility] [place] HISTORICAL/NON ORDERABLE LABS Fi nal Result [facility] * Hm Pap Smear (11/21/2021) Historical Provider HEALTH MAINTENANCE Final Result * Hepatitis C Antibody (10/31/2021 1:15 PM EDT) Hepatitis C Antibody Nonreactive Nonreactive [facility] Comment: Antibodies to HCV not detected; does not exclude early acute HCV infection. HIV AB/AG Nonreactive Nonreactive [facility] Comment: HIV-1 p24 [...] detection of this assay. ?? The Flynn Checker In HIV Ag/Ab Combo assay result and supplemental assay results should be interpreted in conjunction with the patient's clinical presentation, history and other laboratory results. ??If the results are inconsistent with clinical evidence, additional testing is suggested to confirm the result. Hepatitis B Surface Antigen Negative Negative [facility] 10/31/2021 1:15 PM EDT [facility] [place] HISTORICAL/NON ORDERABLE LABS Fi nal Result Performing Organization Address City/[facility]/ZIP Co de Phone Number [facility] [address] from Last 3 Months or Most Recently Relevant to Health Maintenance Insurance [facility] C3 Care Teams Senior Hardware Engineer Relationship Specialty Start Date End Date Amparo Todd ANP [address] [place] [phone] PCP - General Family Medicine 11/14/21
--- OUTSIDE RECORDS SUMMARY | 2024-05-31 08:29 | XMS_ITS | Encounter Summary ---
Author Organization [employer] Address [address] [place] [address] Care Team Providers Care Technical Asst Name Role Phone Amparo Todd Primary Care Provider [phone] Encounter Details Date Type Department Care Team (Late st Contact Info) Description 11/19/2022 Orders Only [facility] [address] [place] [address] Provider, MD Al Social History Tobacco Use [...] HIGH SENSITIVITY <2.7 <3.5 - 17.0 ng/L [facility] Comment:The Flynn high sens itivity Troponin-I results should beused in conjunction with other diagnostic information suchas ECG, clinical observations and information, and patientsymptoms to aid in the diagnosis of [facility]. 10/18/2023 10:4 3 AM EDT 10/18/2023 10:46 AM EDT us Generic External Data Provider LAB BLOOD ORDERAB LES Final Result [facility] [address] [place] [address] [phone] * Basic Metabolic Panel (10/18/2023 10:43 AM EDT) Sodium 139 135 - 145 mmol/L [facility] Potassium 3.5 3.3 - 5.1 mmol/L [facility] Chloride 105 96 - 108 mmol/L [facility] Carbon Dioxide 26 22 - 29 mmol/L [facility] Anion Gap 12 12 - 20 [facility] Urea Nitrogen (BUN) 13 9 - 16 mg/dL [facility] Creatinine, Serum 0.91 0.5 - 1.4 mg/dL [facility] Creatinine Clr Calc Pharmacy 101.0 [facility] Comment:Provided height and weight: 162.56 cm,98.2 kg.eGFR (calculated from the MDRD study equation) and eCrCl(calculated from the Cockcroft-Gault equation) are based ondifferent parameters and may not yield comparable results.If eCrCl result is absurd, please check patient'sheight/weight. Estimated Glomerular Filt Rate >60 [facility] Comment:NOTE: For -Am erican individuals, multiply the result by 1.210.Chronic Kidney Disease: Estimated GFR < 60 mL/min/1.03k1Gychis Kidney Disease: Estimated GFR < 15 mL/min/1.73m2 Glucose 104 60 - 115 mg/dL [facility] Calcium 9.5 8.4 - 10.2 mg/dL [facility] 10/18/2023 10:4 3 AM EDT 10/18/2023 10:46 AM EDT us Generic External Data Provider LAB BLOOD ORDERAB LES Final Result [facility] [address], [place] [id number] [phone] * (ABNORMAL) CBC auto differential (10/18/2023 10:43 AM EDT) White Blood Count 8.6 4.8 - 10.8 X10*3/uL [facility] Red Blood Count 5.29 4.20 - 5.50 X10*6/uL [facility] Hemoglobin 11.9(L) 12.0 - 16.0 g/dl [facility] Hematocrit 35.1(L) 37.0 - 47.0 % [facility] Mean Corpuscular Volume 66.4(L) 80.0 - 98.0 fL [facility] Mean Corpuscular Hemoglobin 22.5(L) 27.0 - 33.0 pg [facility] Mean Corpuscular HGB Conc 33.9 31.0 - 35.0 g/dl [facility] Red Cell Distribution Width 15.2 11.0 - 16.0 % [facility] Platelet Count 339 160 - 400 X10*3/uL [facility] Mean Platelet Volume 9.1(L) 9.4 - 12.3 fL [facility] Neutrophils Percent Auto 59.5 45 - 73 % [facility] Imm Gran Pct Auto 0.3 0.0 - 0.4 % [facility] Lymphocytes Percent Auto 33.6 20 - 40 % [facility] Monocytes Percent Auto 5.3 2 - 11 % [facility] Eosinophils Percent Auto 1.0 0 - 4 % [facility] Basophils Percent Auto 0.3 0 - 2 % [facility] NRBC Pct Auto 0.0 0.0 - 0.2 /100WBC [facility] Neutrophils Absolute Auto 5.1 2.0 - 8.3 x10*3/uL [facility] Imm Gran Abs Auto 0.03 0.00 - 0.03 X10*3/uL [facility] Lymphocytes Absolute Auto 2.9 1.2 - 4.9 X10*3/uL [facility] Monocytes Absolute Auto 0.5 0.1 - 1.2 X10*3/uL [facility] Eosinophils Absolute Auto 0.1 0.0 - 0.4 X10*3/uL [facility] Basophils Absolute Auto 0.0 0.0 - 0.2 X10*3/uL [facility] NRBC Abs Auto 0.000 0.0 - 0.012 X10*3/uL [facility] 10/18/2023 10:4 3 AM EDT 10/18/2023 10:46 AM EDT us Generic External Data Provider LAB BLOOD ORDERAB LES Final Result [facility] [address] [place] [address] [phone] * Hm Pap Smear (11/21/2021) us Historical Provider HEALTH MAINTENANCE Final Result documented in this encounter Visit Diagnoses Not on filedocumented in this encounter Care Teams Technical Asst Relationship Specialty Start Date End Date Amparo Todd ANP [address] [place] [phone] PCP - General Family Medicine 11/14/21 documented as of this encounter
== END 2024-05-31 09:06 | disposition home or self-care (01) ==
LOC: HO.HWS 08:19
PROVIDERS: PCP Nurse Practitioner Primary Care; Visit Provider Obstetrics & Gynecology
DX: Z30.431 Encounter for routine checking of intrauterine contraceptive device (principal); Z32.02 Encounter for pregnancy test, result negative
CPT/HCPCS: 99213

== ENCOUNTER → 2024-05-31 08:19 | Outpatient (BNVA) | payer MEDICAID, SELFPAY | PROVIDERS: PCP Nurse Practitioner Primary Care; Visit Provider Obstetrics & Gynecology | DX: Z30.431 Encounter for routine checking of intrauterine contraceptive device (principal) | CPT/HCPCS: 81025; 99212 ==